=== PATIENT | male | born 1940 | race Caucasian/White ===

== ENCOUNTER 2019-11-23 16:17 | Emergency (ER) | payer MEDICARE, OTHER, SELFPAY | END 2019-11-23 19:03 | disposition home or self-care (01) | PROVIDERS: Emergency Provider Emergency Medicine; Family Provider Nurse Practitioner; Visit Provider Emergency Medicine | DX: R53.1 Weakness (principal); I10 Essential (primary) hypertension; I48.91 Unspecified atrial fibrillation; I25.2 Old myocardial infarction; G30.9 Alzheimer's disease, unspecified; F02.80 Dementia in other diseases classified elsewhere, unspecified severity, without behavioral disturbance, psychotic disturbance, mood disturbance, and anxiety; Z86.73 Personal history of transient ischemic attack (TIA), and cerebral infarction without residual deficits; F17.210 Nicotine dependence, cigarettes, uncomplicated | CPT/HCPCS: 71045; 80053; 85025; 93005; 96360; 99284; J7040 ==

== ENCOUNTER 2019-12-05 01:08 | Inpatient (IN) | payer MEDICARE, OTHER, SELFPAY ==
[2019-12-05] VITALS (21 sets, daily range): BP systolic 88–140; BP diastolic 49–107; PULSE 59–100; RESP 19–25; TEMP 36.5–39.7; O2SAT 90–100; BMI 28.7
--- NOTE | 2019-12-05 01:22 | XR_ITS ---
WS: [id number] CHEST XRAY TECHNIQUE: Portable chest. CLINICAL INFORMATION: fever COMPARISON: November 23, 2019 FINDINGS: Heart: Cardiomegaly. Aortic calcification. Lungs: Chronic emphysematous changes. No acute pulmonary infiltrates. No focal pneumonia. Bones: Normal visualized bony structures. XR/XR chest 1V portable [id number] IMPRESSION: No acute chest findings
--- NOTE | 2019-12-05 01:22 | CTR_ITS ---
PROCEDURE INFORMATION: Exam: CT Head Without Contrast Exam date and time: 12/05/2019 2:06 AM Age: 79 years old Clinical indication: Altered mental status/memory loss; Confusion or disorientation; Additional info: AMS TECHNIQUE: Imaging protocol: Computed tomography of the head without contrast. Total DLP: 879.03 mGy-cm Radiation optimization: All CT scans at this facility use at least one of these dose optimization techniques: automated exposure control; mA and/or kV adjustment per patient size (includes targeted exams where dose is matched to clinical indication); or iterative reconstruction. COMPARISON: CT Head wo IV contrast* [id number] 11/16/2019 4:21 PM FINDINGS: Brain: No acute intracranial hemorrhage or mass effect. There is decreased attenuation in the periventricular white matter, likely from microvascular disease. There are multiple old lacunar infarcts in the basal ganglia regions and thalami bilaterally. Additional old infarcts in the occipital lobes and cerebellum bilaterally, larger on the right. No definite acute infarct by CT. MRI could be more sensitive/specific for detection, as clinically directed. Ventricles: Ventricle size is normal for age. Bones/joints: No definite acute skull fracture. Nonspecific lucent/lytic area again seen in the posterior left parietal bone, not significantly changed. Sinuses: Included paranasal sinuses are essentially clear. Mastoid air cells: No significant acute finding. Vasculature: Prominent vascular calcifications in the internal carotid and vertebral basilar systems. CT/CT head wo con* [id number] IMPRESSION: 1. No acute intracranial hemorrhage or mass effect. 2. Changes of microvascular disease, and multiple old infarcts, details above. 3. No definite acute infarct by CT, see above. 4. Other findings discussed above. Radiation Dose CTDIVOL = (mGy): DLP = 879.03 (mGy-cm)
--- NOTE | 2019-12-05 01:22 | ECG_ITS ---
Measurements Intervals [place] Rate: 94 P: 76 KS: 163 QRS: 15 QRSD: 80 T: 53 QT: 356 QTc: 447 SINUS RHYTHM WITH FREQUENT VENTRICULAR PREMATURE COMPLEXES NONSPECIFIC ST & T-WAVE ABNORMALITY ABNORMAL RHYTHM ECG Compared to ECG 11/23/2019 16:31:43 Sinus bradycardia no longer present T-wave abnormality still present Electronically Signed On 12-05-2019 14:39:15 PROFESSOR OF MANAGEMENT by Leno Ji M.D. [id number]
--- NOTE | 2019-12-05 01:32 | ED_ITS ---
Entered by Anyi Rosario, acting as scribe for Evonne Ayala MD Dec 05, 2019 01:08 HPI - Altered Mental Status General: Chief Complaint: Altered Mental Status Stated Complaint: AMS Time Seen by Provider: 12/05/19 01:18 Source: patient Limitations: no limitations History of Present Illness: HPI narrative: 79 y/o male presents to the ED with complaint of weakness and AMS. Pt has been seen here several times for the same complaint. He is not alert/oriented to person, place or time. Pt appears to not make any sense with his words upon exam. complaint: altered mental status, confusion and weakness Onset (ago): day(s) Severity: moderate Associated symptoms: Reports other (fever); Deny depression Review of Systems Const: Reports: fever (101) Eyes: Denies: change in vision ENMT: Denies: throat pain or mouth pain Card: Denies: chest pain Resp: Denies: shortness of breath GI: Denies: abdominal pain, nausea, vomiting or diarrhea Musc: Denies: back pain or joint pain Skin/Breast: Denies: rash Neuro: Reports: weakness in extremities, slurred speech and difficulty communicating thoughts Psych: Denies: depression Endo: Denies: excessive urination Enrike/Lymph: Denies: easy bruising All/Imm: Denies: hives PFSH ED PFSH: Statuses (acute, chronic, etc) shown below reflect problem list status as previously entered and may not be historically accurate Social History Smoking and tobacco status: unknown if ever smoked Physical Exam Const: COMMON NORMALS: alert; negative for oriented x3 and negative for healthy appearing EXAM LIMITATIONS: altered mental status ORIENTATION/CONSCIOUSNESS: not oriented to person, not oriented to place and not oriented to time HENMT: COMMON NORMALS: normocephalic and external nose normal HEAD & SCALP: normocephalic NOSE: external nose normal Eye: COMMON NORMALS: PERRL and EOMs intact bilaterally PUPIL: Yes PERRL Neck/C-Spine: COMMON NORMALS: full ROM and no lymphadenopathy Chest: COMMONS NORMALS: inspection of chest normal Resp: COMMON NORMALS: normal respiratory effort, no use of accessory muscles and clear to auscultation bilaterally AUSCULTATION: clear to auscultation bilaterally Cardio: COMMON NORMALS: regular rate and regular rhythm RATE: regular rate RHYTHM: regular rhythm GI: COMMON NORMALS: normal to inspection, nondistended, normoactive bowel sounds, soft to palpation, non-tender and no masses PALPATION: Yes soft Back/Pelvis: THORACIC SPINE/UPPER BACK: Yes normal to inspection Extremity: COMMON NORMALS: normal to inspection, full ROM and normal capillary refill Neuro: COMMON NORMALS: negative for oriented x3 SENSORIUM/ORIENTATION: Yes alert, No oriented to person, No oriented to place, No oriented to time and Yes orientation impaired Psych: COMMON NORMALS: cooperative; negative for mental status grossly normal Skin: COMMON NORMALS: no rashes or lesions noted GENERAL SKIN EXAM: no rashes or lesions noted Course Vital Signs: Vital signs: Vital Signs Temperature 103.5 F H 12/05/19 02:59 Pulse Rate 93 12/05/19 03:40 Respiratory Rate 20 H 12/05/19 02:59 Blood Pressure 93/61 12/05/19 03:40 Pulse Oximetry 94 12/05/19 03:40 MDM - Altered Mental Status MDM Narrative: Medical decision making narrative: Patient presents here with chest pain since his ablation. Patient's initial troponin was elevated but is continually going down initial troponin elevation likely from the ablation. Patient CT scan shows no signs of dissection or emboli. Patient's pain is improved here and he is stable for discharge back to the [place] [facility]. He has no signs of pulmonary embolus or acute coronary syndrome. Lab Data: Labs: Lab Results 12/05/19 12/05/19 12/05/19 Range/Units 01:32 01:32 01:32 WBC 6.3 (4.0-10.0) 10^3/ uL RBC 4.64 (4.1-5.3) 10^6/u L Hgb 13.8 (11.7-16.6) g/dL Hct 42.6 (42.0-52.0) % MCV 91.8 (80-94) fL MCH 29.7 (28.0-34.0) pg MCHC 32.4 (30.0-36.0) g/dL RDW 13.2 (12.1-15.1) % Plt Count 166 (130-400) 10^3/c mm MPV 10.0 (7.4-10.4) fL Neut % (Auto) 94.7 % Lymph % (Auto) 4.0 % [place] % (Auto) 0.6 % Eos % (Auto) 0.2 % Baso % (Auto) 0.2 % Neut # (Auto) 6.0 (1.8-7.7) 10^3/u L Lymph # (Auto) 0.3 L (0.8-4.8) 10^3/u L [place] # (Auto) 0.0 L (0.2-0.9) 10^3/u L Eos # (Auto) 0.0 (0.0-0.8) 10^3/u L Baso # (Auto) 0.0 (0.0-0.1) 10^3/u L Nucleated RBC % (a uto) 0 % Nucleated RBCs # 0.0 /100WBC PT 14.40 H (10.5-13.3) SECO NDS INR 1.08 (0.8-1.2) Specimen Type Sample Site ABG pH (7.35-7.45) ABG pCO2 (35-45) mmHg ABG pO2 (80.0-100.0) mmH g ABG HCO3 (22-26) mmol/L ABG Base Excess (-2.0-2.0) mmol/ L Michel Test Hematocrit (42-52) % Last Repairer ID Sodium 136 (136-145) mmol/L Potassium 3.6 (3.5-5.1) mmol/L Chloride 105 (98-107) mmol/L Carbon Dioxide 18 L (22-29) mmol/L Anion Gap 16.6 (5-19) BUN 15 (8-23) mg/dL Creatinine 1.2 (0.7-1.2) mg/dL Glucose 138 H (74-106) mg/dL Lactic Acid (0.5-2.2) mmol/L Calcium 9.9 (8.8-10.2) mg/Dl Total Bilirubin 0.7 (0.15-1.2) mg/dL AST 15 (0-40) U/L ALT 11 (0-41) U/L Alkaline Phosphata se 88 (40-130) IU/L Total Protein 6.6 (6.6-8.7) g/dL Albumin 3.6 (3.5-5.2) g/dL Globulin 3.0 (1.3-4.6) g/dL Urine Color (Yellow) Urine Appearance (CLEAR) Urine pH (5-7) Ur Specific Gravit y (1.005-1.030) Urine Protein (Negative) Urine Glucose (UA) (Normal) Urine Ketones (Negative) Urine Occult Blood (Negative) Urine Nitrate (Negative) Urine Bilirubin (NEGATIVE) Urine Urobilinogen (Negative) mg/dL Ur Leukocyte [place]ore[place] ase (Negative) Urine RBC (0-2) /hpf Urine WBC (0-5) /hpf Ur Squamous Epith Cells (0-5) Ur Transition Epit h Cell /hpf Urine Bacteria (NONE) Hyaline Casts 12/05/19 12/05/19 12/05/19 Range/Units 01:32 02:28 03:36 WBC (4.0-10.0) 10^3/ uL RBC (4.1-5.3) 10^6/u L Hgb (11.7-16.6) g/dL Hct (42.0-52.0) % MCV (80-94) fL MCH (28.0-34.0) pg MCHC (30.0-36.0) g/dL RDW (12.1-15.1) % Plt Count (130-400) 10^3/c mm MPV (7.4-10.4) fL Neut % (Auto) % Lymph % (Auto) % [place] % (Auto) % Eos % (Auto) % Baso % (Auto) % Neut # (Auto) (1.8-7.7) 10^3/u L Lymph # (Auto) (0.8-4.8) 10^3/u L [place] # (Auto) (0.2-0.9) 10^3/u L Eos # (Auto) (0.0-0.8) 10^3/u L Baso # (Auto) (0.0-0.1) 10^3/u L Nucleated RBC % (a uto) % Nucleated RBCs # /100WBC PT (10.5-13.3) SECO NDS INR (0.8-1.2) Specimen Type Arterial Sample Site Radial, right ABG pH 7.49 H (7.35-7.45) ABG pCO2 29.3 L (35-45) mmHg ABG pO2 70.1 L (80.0-100.0) mmH g ABG HCO3 22.4 (22-26) mmol/L ABG Base Excess 0.2 (-2.0-2.0) mmol/ L Michel Test Pos Hematocrit 44.1 (42-52) % Last Repairer ID harkr Sodium (136-145) mmol/L Potassium (3.5-5.1) mmol/L Chloride (98-107) mmol/L Carbon Dioxide (22-29) mmol/L Anion Gap (5-19) BUN (8-23) mg/dL Creatinine (0.7-1.2) mg/dL Glucose (74-106) mg/dL Lactic Acid 2.7 H (0.5-2.2) mmol/L Calcium (8.8-10.2) mg/Dl Total Bilirubin (0.15-1.2) mg/dL AST (0-40) U/L ALT (0-41) U/L Alkaline Phosphata se (40-130) IU/L Total Protein (6.6-8.7) g/dL Albumin (3.5-5.2) g/dL Globulin (1.3-4.6) g/dL Urine Color Yellow (Yellow) Urine Appearance Clear (CLEAR) Urine pH 5 (5-7) Ur Specific Gravit y 1.015 (1.005-1.030) Urine Protein Neg (Negative) Urine Glucose (UA) Norm (Normal) Urine Ketones Negative (Negative) Urine Occult Blood 2+ H (Negative) Urine Nitrate Negative (Negative) Urine Bilirubin Neg (NEGATIVE) Urine Urobilinogen Norm (Negative) mg/dL Ur Leukocyte [place] ase Negative (Negative) Urine RBC 10-15 H (0-2) /hpf Urine WBC 0-4 H (0-5) /hpf Ur Squamous Epith Cells 0-4 H (0-5) Ur Transition Epit h Cell 0-4 /hpf Urine Bacteria 1+ H (NONE) Hyaline Casts 0-4 H Imaging Data^: CXR: Attestation: I personally reviewed and interpreted this imaging study as follows: My impression: nad CT Head: Radiologist's impression: ate of Service: 12/05/19 Procedure(s): CT head wo con* [id number] Accession Number(s): [id number] cc: Evonne Ayala MD PROCEDURE INFORMATION: Exam: CT Head Without Contrast Exam date and time: 12/05/2019 2:06 AM Age: 79 years old Clinical indication: Altered mental status/memory loss; Confusion or disorientation; Additional info: AMS TECHNIQUE: Imaging protocol: Computed tomography of the head without contrast. Total DLP: 879.03 mGy-cm Radiation optimization: All CT scans at this facility use at least one of these dose optimization techniques: automated exposure control; mA and/or kV adjustment per patient size (includes targeted exams where dose is matched to clinical indication); or iterative reconstruction. COMPARISON: CT Head wo IV contrast* [id number] 11/16/2019 4:21 PM FINDINGS: Brain: No acute intracranial hemorrhage or mass effect. There is decreased attenuation in the periventricular white matter, likely from microvascular disease. There are multiple old lacunar infarcts in the basal ganglia regions and thalami bilaterally. Additional old infarcts in the occipital lobes and cerebellum bilaterally, larger on the right. No definite acute infarct by CT. MRI could be more sensitive/specific for detection, as clinically directed. Ventricles: Ventricle size is normal for age. Bones/joints: No definite acute skull fracture. Nonspecific lucent/lytic area again seen in the posterior left parietal bone, not significantly changed. Sinuses: Included paranasal sinuses are essentially clear. Mastoid air cells: No significant acute finding. Vasculature: Prominent vascular calcifications in the internal carotid and vertebral basilar systems. CT/CT head wo con* [id number] IMPRESSION: 1. No acute intracranial hemorrhage or mass effect. 2. Changes of microvascular disease, and multiple old infarcts, details above. 3. No definite acute infarct by CT, see above. 4. Other findings discussed above. EKG Data^: EKG 1: Attestation: I personally reviewed and interpreted this EKG as follows: EKG interpretation date: 12/05/19 EKG interpretation time: 02:33 Interpretation: nsr hr [address] or t wave abnormalities qrs 80 qtc 408 Coding Level of Care Code ED Petrologist for Chg Fwd Exam Problem Focused The documentation recorded by the Abraham tapia Ashley, accurately reflects the service I personally performed and the decisions made by , Evonne Ayala MD Dec 05, 2019 01:08
[2019-12-05 01:42] LABS: Basophils % 0.2 %; Eosinophils % 0.2 %; Hematocrit 42.6 % (42.0-52.0); Hemoglobin 13.8 g/dL (11.7-16.6); Lymphocytes # 0.3 10^3/uL (0.8-4.8); Mean Corpuscular HGB Conc 32.4 g/dL (30.0-36.0); Mean Corpuscular Hemoglobin 29.7 pg (28.0-34.0); Mean Corpuscular Volume 91.8 fL (80-94); Monocytes % 0.6 %; Neutrophils % 94.7 %; Nucleated Red Blood Cells % 0 %; Platelet Count 166 10^3/cmm (130-400); Red Blood Count 4.64 10^6/uL (4.1-5.3); Red Cell Distribution Width 13.2 % (12.1-15.1); White Blood Count 6.3 10^3/uL (4.0-10.0)
[2019-12-05 01:57] LABS: INR 1.08 (0.8-1.2)
[2019-12-05 02:03] LABS: Alanine Aminotransferase 11 U/L (0-41); Albumin Level 3.6 g/dL (3.5-5.2); Alkaline Phosphatase 88 IU/L (40-130); Anion Gap 16.6 (5-19); Aspartate Amino Transferase 15 U/L (0-40); Blood Urea Nitrogen 15 mg/dL (8-23); Calcium 9.9 mg/Dl (8.8-10.2); Carbon Dioxide 18 mmol/L (22-29); Chloride 105 mmol/L (98-107); Glucose 138 mg/dL (74-106); Potassium 3.6 mmol/L (3.5-5.1); Sodium 136 mmol/L (136-145); Total Bilirubin 0.7 mg/dL (0.15-1.2); Total Protein 6.6 g/dL (6.6-8.7)
[2019-12-05 02:04] LABS: Lactic Sepsis W/Reflex 2.7 mmol/L (0.5-2.2)
[2019-12-05] MEDS: sodium chloride 0.9% 1,000 ML 999 ML IV ×3 (02:21→05:52)
[2019-12-05] MEDS: piperacillin-tazobactam 4.5 GM in sodium chloride 0.9% (plus) 50 ML IV (02:27)
[2019-12-05 02:39] LABS: ABG PCO2 29.3 mmHg (35-45); ABG PH Result 7.49 (7.35-7.45); Arterial Blood Gas Hematocrit 44.1 % (42-52); Base Excess ABG 0.2 mmol/L (-2.0-2.0); Blood Gas Allen Test Pos; Blood Gas Sample Site Radial, right; Blood Gas Sample Type Arterial; HCO3 ABG 22.4 mmol/L (22-26); PO2 ABG 70.1 mmHg (80.0-100.0)
--- NOTE | 2019-12-05 03:06 | PC.NURSE ---
informed charge nurse and doctor of fever 103.5 via left under arm
[2019-12-05 03:26] LABS: Reflex Lactate Order Y
[2019-12-05 04:01] LABS: Bilirubin Urine Neg (NEGATIVE); Blood Urine 2+ (Negative); Glucose Urine UA Norm (Normal); Ketones Urine Negative (Negative); Leukocyte Esterase Urine Negative (Negative); Nitrate Urine Negative (Negative); Protein Urine Neg (Negative); Specific Gravity, Urine 1.015 (1.005-1.030); Urine Appearance Clear (CLEAR); Urine Color Yellow (Yellow); Urobilinogen Urine Norm (Negative); pH Urine 5 (5-7)
[2019-12-05 04:03] LABS: WBC Urine 0-4 /hpf (0-5)
[2019-12-05 04:04] LABS: Add Urine Culture? Yes; Bacteria Urine 1+; Hyaline Casts Urine 0-4; Squamous Epithelial Cell Urine 0-4 (0-5); Transitional Epi Cells Urine 0-4 /hpf
[2019-12-05 04:22] LABS: Influenza A by IFA Negative (Negative); Influenza B by IFA Negative (Negative)
[2019-12-05] MEDS: ketamine 100 mg/mL Inj 5 mL IV (04:52)
[2019-12-05 05:27] LABS: CSF Mononuclear # 0.001 10^3/uL (50-90); Mononuclear WBC CSF % 100 % (50-90); Polynuclear WBC CSF % 0 % (0-10); Red Blood Cell CSF 0 10^3/uL (0-0); White Blood Cell CSF 1 /uL (0-5)
[2019-12-05 05:47] LABS: Appearance CSF CLEAR (CLEAR); Color CSF COLORLESS (COLORLESS); Pathology Referral Yes
--- NOTE | 2019-12-05 07:03 | PC.NURSE ---
report received from JOHN Villa.
[2019-12-05 07:52] LABS: Lactate (Lactic Acid level) 2.2 mmol/L (0.5-2.2)
--- NOTE | 2019-12-05 08:43 | ED_ITS ---
HPI - Altered Mental Status General: Chief Complaint: Altered Mental Status Stated Complaint: AMS Time Seen by Provider: 12/05/19 01:18 Source: patient Limitations: no limitations History of Present Illness: Severity: moderate PFSH ED PFSH: Statuses (acute, chronic, etc) shown below reflect problem list status as previously entered and may not be historically accurate Medical History Atrial fibrillation (Acute) BPH (benign prostatic hyperplasia) (Acute) Chronic anticoagulation (Acute) Coronary artery disease (Acute) Dementia (Acute) Diastolic CHF (Acute) GERD (gastroesophageal reflux disease) (Acute) History of CVA (cerebrovascular accident) (Acute) Hyperlipidemia (Acute) Hypertension (Acute) Lower GI bleed (Acute) Surgical History H/O vasectomy (Acute) Hx of cardiac cath (Acute) 2000, coronary stent placement x3 S/P skin cancer resection (Acute) Lip, shoulder, back Family History Daughter CAD (coronary artery disease) Diabetes Son CAD (coronary artery disease) Social History Smoking and tobacco status: unknown if ever smoked Alcohol intake: unknown Substance/Drug Use: unknown Household members: spouse Course ED course: Chart signed off to me at change of shift. Patient was awaiting room placement in our facility. She had no further events while in the emergency room was admitted via hospitalist services. Vital Signs: Vital signs: Vital Signs Temperature 98.7 F 12/09/19 17:04 Pulse Rate 66 12/09/19 15:29 Respiratory Rate 17 12/09/19 17:04 Blood Pressure 121/75 12/09/19 15:29 Pulse Oximetry 91 12/09/19 17:04 MDM - Altered Mental Status Lab Data: Labs: Lab Results 12/05/19 12/05/19 12/05/19 Range/Units 01:32 01:32 01:32 WBC 6.3 (4.0-10.0) 10^3/ uL RBC 4.64 (4.1-5.3) 10^6/u L Hgb 13.8 (11.7-16.6) g/dL Hct 42.6 (42.0-52.0) % MCV 91.8 (80-94) fL MCH 29.7 (28.0-34.0) pg MCHC 32.4 (30.0-36.0) g/dL RDW 13.2 (12.1-15.1) % Plt Count 166 (130-400) 10^3/c mm MPV 10.0 (7.4-10.4) fL Neut % (Auto) 94.7 % Lymph % (Auto) 4.0 % [place] % (Auto) 0.6 % Eos % (Auto) 0.2 % Baso % (Auto) 0.2 % Neut # (Auto) 6.0 (1.8-7.7) 10^3/u L Lymph # (Auto) 0.3 L (0.8-4.8) 10^3/u L [place] # (Auto) 0.0 L (0.2-0.9) 10^3/u L Eos # (Auto) 0.0 (0.0-0.8) 10^3/u L Baso # (Auto) 0.0 (0.0-0.1) 10^3/u L Nucleated RBC % (a uto) 0 % Nucleated RBCs # 0.0 /100WBC PT 14.40 H (10.5-13.3) SECO NDS INR 1.08 (0.8-1.2) Specimen Type Sample Site ABG pH (7.35-7.45) ABG pCO2 (35-45) mmHg ABG pO2 (80.0-100.0) mmH g ABG HCO3 (22-26) mmol/L ABG Base Excess (-2.0-2.0) mmol/ L Michel Test Hematocrit (42-52) % Specimen Drawn By Shopper Marketing Manager ID Sodium 136 (136-145) mmol/L Potassium 3.6 (3.5-5.1) mmol/L Chloride 105 (98-107) mmol/L Carbon Dioxide 18 L (22-29) mmol/L Anion Gap 16.6 (5-19) BUN 15 (8-23) mg/dL Creatinine 1.2 (0.7-1.2) mg/dL Glucose 138 H (74-106) mg/dL Lactic Acid (0.5-2.2) mmol/L Calcium 9.9 (8.8-10.2) mg/Dl Total Bilirubin 0.7 (0.15-1.2) mg/dL AST 15 (0-40) U/L ALT 11 (0-41) U/L Alkaline Phosphata se 88 (40-130) IU/L Total Protein 6.6 (6.6-8.7) g/dL Albumin 3.6 (3.5-5.2) g/dL Globulin 3.0 (1.3-4.6) g/dL TSH (0.27-4.20) uIU/ mL Urine Color (Yellow) Urine Appearance (CLEAR) Urine pH (5-7) Ur Specific Gravit y (1.005-1.030) Urine Protein (Negative) Urine Glucose (UA) (Normal) Urine Ketones (Negative) Urine Occult Blood (Negative) Urine Nitrate (Negative) Urine Bilirubin (NEGATIVE) Urine Urobilinogen (Negative) mg/dL Ur Leukocyte [place] ase (Negative) Urine RBC (0-2) /hpf Urine WBC (0-5) /hpf Ur Squamous Epith Cells (0-5) Ur Transition Epit h Cell /hpf Urine Bacteria (NONE) Hyaline Casts CSF Appearance (CLEAR) CSF Color (COLORLESS) CSF WBC (0-5) /uL CSF RBC (0-0) 10^3/uL CSF Mononuclear # Auto (50-90) 10^3/uL CSF Mononuclear WB Cs % (50-90) % CSF Polynuclear WB Cs # (0-10) 10^3/uL CSF Polynuclear WB Cs % (0-10) % CSF Diff Comment CSF VDRL Influenza Type A A g (Negative) POC Influenza B Ag (Negative) 12/05/19 12/05/19 12/05/19 Range/Units 01:32 01:32 02:28 WBC (4.0-10.0) 10^3/ uL RBC (4.1-5.3) 10^6/u L Hgb (11.7-16.6) g/dL Hct (42.0-52.0) % MCV (80-94) fL MCH (28.0-34.0) pg MCHC (30.0-36.0) g/dL RDW (12.1-15.1) % Plt Count (130-400) 10^3/c mm MPV (7.4-10.4) fL Neut % (Auto) % Lymph % (Auto) % [place] % (Auto) % Eos % (Auto) % Baso % (Auto) % Neut # (Auto) (1.8-7.7) 10^3/u L Lymph # (Auto) (0.8-4.8) 10^3/u L [place] # (Auto) (0.2-0.9) 10^3/u L Eos # (Auto) (0.0-0.8) 10^3/u L Baso # (Auto) (0.0-0.1) 10^3/u L Nucleated RBC % (a uto) % Nucleated RBCs # /100WBC PT (10.5-13.3) SECO NDS INR (0.8-1.2) Specimen Type Arterial Sample Site Radial, right ABG pH 7.49 H (7.35-7.45) ABG pCO2 29.3 L (35-45) mmHg ABG pO2 70.1 L (80.0-100.0) mmH g ABG HCO3 22.4 (22-26) mmol/L ABG Base Excess 0.2 (-2.0-2.0) mmol/ L Michel Test Pos Hematocrit 44.1 (42-52) % Specimen Drawn By Kh Shopper Marketing Manager ID [email or web address] Sodium (136-145) mmol/L Potassium (3.5-5.1) mmol/L Chloride (98-107) mmol/L Carbon Dioxide (22-29) mmol/L Anion Gap (5-19) BUN (8-23) mg/dL Creatinine (0.7-1.2) mg/dL Glucose (74-106) mg/dL Lactic Acid 2.7 H (0.5-2.2) mmol/L Calcium (8.8-10.2) mg/Dl Total Bilirubin (0.15-1.2) mg/dL AST (0-40) U/L ALT (0-41) U/L Alkaline Phosphata se (40-130) IU/L Total Protein (6.6-8.7) g/dL Albumin (3.5-5.2) g/dL Globulin (1.3-4.6) g/dL TSH 2.20 (0.27-4.20) uIU/ mL Urine Color (Yellow) Urine Appearance (CLEAR) Urine pH (5-7) Ur Specific Gravit y (1.005-1.030) Urine Protein (Negative) Urine Glucose (UA) (Normal) Urine Ketones (Negative) Urine Occult Blood (Negative) Urine Nitrate (Negative) Urine Bilirubin (NEGATIVE) Urine Urobilinogen (Negative) mg/dL Ur Leukocyte [place] ase (Negative) Urine RBC (0-2) /hpf Urine WBC (0-5) /hpf Ur Squamous Epith Cells (0-5) Ur Transition Epit h Cell /hpf Urine Bacteria (NONE) Hyaline Casts CSF Appearance (CLEAR) CSF Color (COLORLESS) CSF WBC (0-5) /uL CSF RBC (0-0) 10^3/uL CSF Mononuclear # Auto (50-90) 10^3/uL CSF Mononuclear WB Cs % (50-90) % CSF Polynuclear WB Cs # (0-10) 10^3/uL CSF Polynuclear WB Cs % (0-10) % CSF Diff Comment CSF VDRL Influenza Type A A g (Negative) POC Influenza B Ag (Negative) 12/05/19 12/05/19 12/05/19 Range/Units 03:20 03:36 04:41 WBC (4.0-10.0) 10^3/ uL RBC (4.1-5.3) 10^6/u L Hgb (11.7-16.6) g/dL Hct (42.0-52.0) % MCV (80-94) fL MCH (28.0-34.0) pg MCHC (30.0-36.0) g/dL RDW (12.1-15.1) % Plt Count (130-400) 10^3/c mm MPV (7.4-10.4) fL Neut % (Auto) % Lymph % (Auto) % [place] % (Auto) % Eos % (Auto) % Baso % (Auto) % Neut # (Auto) (1.8-7.7) 10^3/u L Lymph # (Auto) (0.8-4.8) 10^3/u L [place] # (Auto) (0.2-0.9) 10^3/u L Eos # (Auto) (0.0-0.8) 10^3/u L Baso # (Auto) (0.0-0.1) 10^3/u L Nucleated RBC % (a uto) % Nucleated RBCs # /100WBC PT (10.5-13.3) SECO NDS INR (0.8-1.2) Specimen Type Sample Site ABG pH (7.35-7.45) ABG pCO2 (35-45) mmHg ABG pO2 (80.0-100.0) mmH g ABG HCO3 (22-26) mmol/L ABG Base Excess (-2.0-2.0) mmol/ L Michel Test Hematocrit (42-52) % Specimen Drawn By Shopper Marketing Manager ID Sodium (136-145) mmol/L Potassium (3.5-5.1) mmol/L Chloride (98-107) mmol/L Carbon Dioxide (22-29) mmol/L Anion Gap (5-19) BUN (8-23) mg/dL Creatinine (0.7-1.2) mg/dL Glucose (74-106) mg/dL Lactic Acid (0.5-2.2) mmol/L Calcium (8.8-10.2) mg/Dl Total Bilirubin (0.15-1.2) mg/dL AST (0-40) U/L ALT (0-41) U/L Alkaline Phosphata se (40-130) IU/L Total Protein (6.6-8.7) g/dL Albumin (3.5-5.2) g/dL Globulin (1.3-4.6) g/dL TSH (0.27-4.20) uIU/ mL Urine Color Yellow (Yellow) Urine Appearance Clear (CLEAR) Urine pH 5 (5-7) Ur Specific Gravit y 1.015 (1.005-1.030) Urine Protein Neg (Negative) Urine Glucose (UA) Norm (Normal) Urine Ketones Negative (Negative) Urine Occult Blood 2+ H (Negative) Urine Nitrate Negative (Negative) Urine Bilirubin Neg (NEGATIVE) Urine Urobilinogen Norm (Negative) mg/dL Ur Leukocyte [place]ore[place] ase Negative (Negative) Urine RBC 10-15 H (0-2) /hpf Urine WBC 0-4 H (0-5) /hpf Ur Squamous Epith Cells 0-4 H (0-5) Ur Transition Epit h Cell 0-4 /hpf Urine Bacteria 1+ H (NONE) Hyaline Casts 0-4 H CSF Appearance Clear (CLEAR) CSF Color Colorless (COLORLESS) CSF WBC 1 (0-5) /uL CSF RBC 0 (0-0) 10^3/uL CSF Mononuclear # Auto 0.001 L (50-90) 10^3/uL CSF Mononuclear WB Cs % 100 H (50-90) % CSF Polynuclear WB Cs # 0.000 (0-10) 10^3/uL CSF Polynuclear WB Cs % 0 (0-10) % CSF Diff Comment Yes CSF VDRL Influenza Type A A g Negative (Negative) POC Influenza B Ag Negative (Negative) 12/05/19 Range/Units 04:41 WBC (4.0-10.0) 10^3/ uL RBC (4.1-5.3) 10^6/u L Hgb (11.7-16.6) g/dL Hct (42.0-52.0) % MCV (80-94) fL MCH (28.0-34.0) pg MCHC (30.0-36.0) g/dL RDW (12.1-15.1) % Plt Count (130-400) 10^3/c mm MPV (7.4-10.4) fL Neut % (Auto) % Lymph % (Auto) % [place] % (Auto) % Eos % (Auto) % Baso % (Auto) % Neut # (Auto) (1.8-7.7) 10^3/u L Lymph # (Auto) (0.8-4.8) 10^3/u L [place] # (Auto) (0.2-0.9) 10^3/u L Eos # (Auto) (0.0-0.8) 10^3/u L Baso # (Auto) (0.0-0.1) 10^3/u L Nucleated RBC % (a uto) % Nucleated RBCs # /100WBC PT (10.5-13.3) SECO NDS INR (0.8-1.2) Specimen Type Sample Site ABG pH (7.35-7.45) ABG pCO2 (35-45) mmHg ABG pO2 (80.0-100.0) mmH g ABG HCO3 (22-26) mmol/L ABG Base Excess (-2.0-2.0) mmol/ L Michel Test Hematocrit (42-52) % Specimen Drawn By Shopper Marketing Manager ID Sodium (136-145) mmol/L Potassium (3.5-5.1) mmol/L Chloride (98-107) mmol/L Carbon Dioxide (22-29) mmol/L Anion Gap (5-19) BUN (8-23) mg/dL Creatinine (0.7-1.2) mg/dL Glucose (74-106) mg/dL Lactic Acid (0.5-2.2) mmol/L Calcium (8.8-10.2) mg/Dl Total Bilirubin (0.15-1.2) mg/dL AST (0-40) U/L ALT (0-41) U/L Alkaline Phosphata se (40-130) IU/L Total Protein (6.6-8.7) g/dL Albumin (3.5-5.2) g/dL Globulin (1.3-4.6) g/dL TSH (0.27-4.20) uIU/ mL Urine Color (Yellow) Urine Appearance (CLEAR) Urine pH (5-7) Ur Specific Gravit y (1.005-1.030) Urine Protein (Negative) Urine Glucose (UA) (Normal) Urine Ketones (Negative) Urine Occult Blood (Negative) Urine Nitrate (Negative) Urine Bilirubin (NEGATIVE) Urine Urobilinogen (Negative) mg/dL Ur Leukocyte [place]ore[place] ase (Negative) Urine RBC (0-2) /hpf Urine WBC (0-5) /hpf Ur Squamous Epith Cells (0-5) Ur Transition Epit h Cell /hpf Urine Bacteria (NONE) Hyaline Casts CSF Appearance (CLEAR) CSF Color (COLORLESS) CSF WBC (0-5) /uL CSF RBC (0-0) 10^3/uL CSF Mononuclear # Auto (50-90) 10^3/uL CSF Mononuclear WB Cs % (50-90) % CSF Polynuclear WB Cs # (0-10) 10^3/uL CSF Polynuclear WB Cs % (0-10) % CSF Diff Comment CSF VDRL Non-reactive Influenza Type A A g (Negative) POC Influenza B Ag (Negative) Discharge Plan Discharge Patient Disposition: Admitted As Inpatient Admit Provider: Telma Corley Condition: Stable Discharge Orders: Discharge Order (Routine); Ordered 12/09/19 Ordered By: Toña Allan Referrals: Noah Preciado MD [Physician] - 6 Weeks Patricia Ramos FNP [Primary Care Provider] - Discharge Diet: Cardiac, GI soft diet, advance as tolerated. Patient does require assistance with each meal for feeding Discharge Activity: As per PT/OT instructions Patient Instructions: Sulfamethoxazole/Trimethoprim (By mouth), Lorazepam (By mouth), Pantoprazole (By mouth), Fever - Adult, Altered Mental Status (GEN) Additional Instructions: [facility] 2 [facility] 3 [facility] Continue with oral antibiotics as prescribed Continue to monitor renal function with prescribed antibiotic Follow-up with general surgeon, Dr. Preciado in 6 weeks to discuss possibility of colonoscopy and cholecystectomy Oxygen as needed at the [facility], currently on room air Continue with physical therapy, occupational therapy and speech therapy Continue to increase ambulation as tolerated GI soft diet, slowly advance as tolerated, high-fiber diet Discharge Date/Time: 12/05/19 15:50 Coding Level of Care Code ED Senior Web Developer for Tito Mijares
--- NOTE | 2019-12-05 08:50 | PC.NURSE ---
pt's BP 71/63. verbal orders from ER physician to start levophed drip and place vick catheter. Hospitalist at bedside to assess pt
--- NOTE | 2019-12-05 08:56 | PM.HP ---
Providers/Chief Complaint Admitting Physician: Toña Allan DO Primary Care Provider: Patricia Ramos Chief Complaint: AMS History of Present Illness Anjum Mendoza is a 79 year old male that presented to the emergency department for altered mental status. Difficult to obtain HPI from patient due to altered mental status. He reports that he is not certain why he came into the hospital, no family is present at bedside during my exam. He reports that he has not had any chest pain, no cough, no sputum production, no hemoptysis. He denies any nausea or vomiting but reports that he is feeling very thirsty. Patient does not recall any events that led to his hospitalization. He is able to report that he is in [place] able to provide his full name and date of and able to provide correct president but reports that the year is 1999. Patient was seen and evaluated in the emergency department noted to have sepsis with septic shock and admitted for further evaluation and treatment. Patient had a lumbar puncture performed in the ED, given 3 L of IV fluids and ultimately started on Levophed drip. Given broad-spectrum IV antibiotics in the ED Review of Systems General: Reports: other (Difficult to obtain full review of systems due to patient's altered mental status) Const: Reports: fever (101) Eyes: Reports: change in vision and other (Chronic vision changes from prior stroke) ENMT: Denies: throat pain or mouth pain Card: Denies: chest pain Resp: Denies: shortness of breath, productive cough, non-productive cough or coughing up blood GI: Reports: abdominal pain; Denies: nausea, vomiting, diarrhea, blood in stool or black tarry stool : Denies: difficulty urinating or painful urination Musc: Denies: back pain or joint pain Skin/Breast: Denies: rash Neuro: Reports: confusion and other (Chronic weakness in the lower extremities and chronic vision changes from prior stroke) Psych: Denies: depression Endo: Denies: excessive urination [place]/Lymph: Denies: easy bruising All/Imm: Denies: hives Medications/Allergies Home Medications Medication Instructions Recorded Confirmed Last Taken Type atorvastatin 40 mg PO DAILY 12/05/19 12/05/19 12/04/19 History finasteride 5 mg PO DAILY 12/05/19 12/05/19 12/04/19 History memantine 10 mg PO DAILY 12/05/19 12/05/19 12/04/19 History mirtazapine 30 mg PO DAILY 12/05/19 12/05/19 12/04/19 History quetiapine 25 mg PO DAILY 12/05/19 12/05/19 12/04/19 History sotalol 80 mg PO BID 12/05/19 12/05/19 12/04/19 History tamsulosin 0.4 mg PO DAILY 12/05/19 12/05/19 12/04/19 History Allergies Allergy/AdvReac Type Severity Reaction Status Date / Time No Known Allergies Allergy Verified 12/05/19 09:43 PFSH Acute PFSH: Statuses (acute, chronic, etc) shown below reflect problem list status as previously entered and may not be historically accurate Medical History (Updated 12/05/19 @ 09:06 by Toña Allan DO) Atrial fibrillation (Acute) BPH (benign prostatic hyperplasia) (Acute) Chronic anticoagulation (Acute) Coronary artery disease (Acute) Dementia (Acute) Diastolic CHF (Acute) GERD (gastroesophageal reflux disease) (Acute) History of CVA (cerebrovascular accident) (Acute) Hyperlipidemia (Acute) Hypertension (Acute) Lower GI bleed (Acute) Surgical History (Updated 12/05/19 @ 09:06 by Toña Allan DO) H/O vasectomy (Acute) Hx of cardiac cath (Acute) 2000, coronary stent placement x3 S/P skin cancer resection (Acute) Lip, shoulder, back Family History (Updated 12/05/19 @ 09:06 by Toña Allan DO) Daughter CAD (coronary artery disease) Diabetes Son CAD (coronary artery disease) Social History (Updated 12/05/19 @ 09:07 by Toña Allan DO) Smoking and tobacco status: unknown if ever smoked Alcohol intake: unknown Substance/Drug Use: unknown Household members: spouse Vitals/I&O/Wt Last Vital Signs Temp 103.5 F H 12/05/19 02:59 Pulse 83 12/05/19 07:41 Resp 19 H 12/05/19 04:48 BP 98/49 12/05/19 07:41 Pulse Ox 94 12/05/19 07:41 12/04/19 12/05/19 12/05/19 22:59 06:59 14:59 Intake Total 3300 / 3300 Balance 3300 / 3300 Weight last 48 hrs Weight 90.718 kg Physical Exam Const: COMMON NORMALS: oriented x3 and alert GENERAL APPEARANCE: cooperative ORIENTATION/CONSCIOUSNESS: Yes awake, Yes oriented to person and Yes oriented to place; not oriented to time HENMT: COMMON NORMALS: normocephalic and head/scalp atraumatic HEAD & SCALP: normocephalic and atraumatic Eye: COMMON NORMALS: PERRL PUPIL: Yes PERRL Neck/C-Spine: COMMON NORMALS: supple Resp: COMMON NORMALS: clear to auscultation bilaterally AUSCULTATION: clear to auscultation bilaterally, no rhonchi and no wheezes Cardio: COMMON NORMALS: regular rate and regular rhythm RATE: regular rate RHYTHM: regular rhythm HEART SOUNDS: murmur systolic GI: INSPECTION: No abdominal distension and Yes central obesity AUSCULTATION: Yes hypoactive bowel sounds PALPATION: Yes tender Details: RLQ and RUQ : COMMON NORMALS: Yes scrotum normal and Yes no scrotal swelling OTHER: Nuñez catheter in place Extremity: COMMON NORMALS: no clubbing, cyanosis or edema and no calf tenderness Neuro: COMMON NORMALS: oriented x3, CN's II-XII intact bilaterally, moves all extremities and no focal motor deficits SENSORIUM/ORIENTATION: Yes alert, Yes oriented to person, Yes oriented to place and Yes oriented to time SPEECH: speech normal OTHER: Reports chronic vision changes from prior CVA, oriented to person and place, not oriented to time. No appreciable facial droop, answering yes and no questions appropriately Psych: COMMON NORMALS: cooperative Skin: COMMON NORMALS: no rashes or lesions noted GENERAL SKIN EXAM: no rashes or lesions noted Sepsis: Is patient septic: Yes Focused sepsis exam performed: Yes Date exam was performed: 12/05/19 Time exam was performed: 09:10 Data Micro: Micro: Microbiology 12/05/19 01:48 Blood Culture - Pr eliminary Blood SPECIMEN [facility] 12/05/19 01:32 Blood Culture - Pr eliminary Blood SPECIMEN [facility] Imaging^: CT Head: Radiologist's impression: 1. No acute intracranial hemorrhage or mass effect. 2. Changes of microvascular disease, and multiple old infarcts, details above. 3. No definite acute infarct by CT, see above. 4. Other findings discussed above CXR: Radiologist's impression: No acute chest findings A&P Assessment and plan (1) Sepsis: Sepsis with unknown source Continue broad spectrum antibiotics, given Zosyn and vancomycin in the ED, will continue at this time Further evaluate with CT scan of the abdomen and pelvis due to patient having significant tenderness to palpation in the right upper and lower quadrant Continue with aggressive IV fluids Patient started on levophed in the ED, will continue with IV fluids 30 mg/kg per sepsis protocol Status: Acute Code(s): A41.9 - Sepsis, unspecified organism (2) History of CVA (cerebrovascular accident): With residual lower extremity weakness and chronic vision changes and near vision loss No new focal neurologic deficits at this time Continue with close neurologic checks Status: Acute Code(s): Z86.73 - Personal history of transient ischemic attack (TIA), and cerebral infarction without residual deficits (3) Coronary artery disease: Status: Acute Code(s): I25.10 - Atherosclerotic heart disease of [place] coronary artery without angina pectoris (4) Atrial fibrillation: Status: Acute Code(s): I48.91 - Unspecified atrial fibrillation (5) GERD (gastroesophageal reflux disease): Status: Acute Code(s): K21.9 - Gastro-esophageal reflux disease without esophagitis (6) Diastolic CHF: Status: Acute Code(s): I50.30 - Unspecified diastolic (congestive) heart failure (7) BPH (benign prostatic hyperplasia): Status: Acute Code(s): N40.0 - Benign prostatic hyperplasia without lower urinary tract symptoms (8) Hypertension: Status: Acute Code(s): I10 - Essential (primary) hypertension (9) Dementia: Status: Acute Code(s): F03.90 - Unspecified dementia without behavioral disturbance Additional A&P Information Additional A&P Information: Acute metabolic encephalopathy: Plan as noted above for treatment of sepsis, continue with frequent neurologic checks, CT scan of the head as noted above. Close monitoring in the ICU setting. Check TSH and ammonia Unknown medications at time of initial examination no family present at bedside. Will obtain home medication list and further evaluate with CT scan of the abdomen and pelvis. CT scan of the abdomen and pelvis returned showing diverticulitis without any perforation or abscess formation. Also showing cholelithiasis, right upper quadrant ultrasound ordered for further evaluation. Continue on broad-spectrum antibiotic coverage. Patient had right upper quadrant ultrasound returned which showed question of early cholecystitis, will further evaluate with HIDA scan and consult general surgery. Attestations Medical Necessity Statement*: Patient requires hospitalization due to sepsis, with acute metabolic encephalopathy expected stay greater than 2 midnights Coding Level of Care Code Acute Sort Operations Supervisor for Chg Fwd Exam Problem Focused Diagnoses Sepsis A41.9 History of CVA (cerebrovascular accident) Z86.73 Coronary artery disease I25.10 Atrial fibrillation I48.91 GERD (gastroesophageal reflux disease) K21.9 Diastolic CHF I50.30 BPH (benign prostatic hyperplasia) N40.0 Hypertension I10 Dementia F03.90
--- NOTE | 2019-12-05 09:20 | CT_ITS ---
WS: [id number] CT ABDOMEN PELVIS TECHNIQUE: Contrast-enhanced CT of the abdomen and pelvis with coronal and sagittal reformatted image s. CLINICAL INFORMATION: sepsis, abdominal pain COMPARISON: CT pelvis 12 4019 DLP: 1364.[address] scans at [facility] use at least one of these dose optimization techniques: automat ed exposure control; mA and/or kV adjustment per patient size (includes targeted exams where dose is matched to clinical indication); or iterative reconstruction. FINDINGS: Normal liver. Cholelithiasis. Normal portal vein and splenic vein. 13 mm hepatic cyst in the caudate. Normal portal vein and splenic vein. Fatty atrophy of the pancreas. Normal renal parenchymal enhance ment. No hydronephrosis. Bladder is decompressed. Nuñez catheter in place. Pelvic phleboliths. Promin ent prostate enlargement. Slight atelectasis left lung base. Normal gastroesophageal junction. Fluid distended loops of small b owel in the left upper quadrant. No evidence of high-grade obstruction. Mild rectosigmoid constipation. Diverticulosis. Small amount of inflammatory stranding in the left lo wer quadrant suspicious for early or mild diverticulitis. No abscess. Notified Toña Allan DO at 12/05/2019 10:[address]/CT abdomen pelvis w con* [id number] IMPRESSION: 1. Sigmoid diverticulosis with suspected mild acute diverticulitis. No evidenc e of abscess or drainable fluid collection. 2. Cholelithiasis. This can be followed up with ultrasound. 3. Slightly prominent fluid-filled loops of small bowel in the left upper quad rant. No evidence of high-grade obstruction. 4. Mild rectosigmoid constipation. 5. Prostate enlargement. Recommend correlation PSA.
--- NOTE | 2019-12-05 09:23 | ECG_ITS ---
Measurements Intervals [place] Rate: 68 P: 59 TX: 170 QRS: -3 QRSD: 85 T: 43 QT: 430 QTc: 458 SINUS RHYTHM WITH OCCASIONAL SUPRAVENTRICULAR PREMATURE COMPLEXES NONSPECIFIC ST & T-WAVE ABNORMALITY Compared to ECG 11/23/2019 16:31:43 Sinus bradycardia no longer present Ventricular premature complex(es) no longer present T-wave abnormality still present Electronically Signed On 12-05-2019 14:40:54 IVORY POLISHER by Leno Ji M.D. [email or web address]
[2019-12-05 09:28] LABS: Ammonia 40 umol/L (16-60)
--- NOTE | 2019-12-05 09:40 | PC.NURSE ---
PT TRANSPORTED TO CT BY STRETCHER WITH TECH
[2019-12-05] MEDS: iodixanol 320 mg/mL 100mL Btl IV (09:56)
[2019-12-05 10:02] LABS: Troponin(5th) Baseline 23 ng/mL (0-15)
[2019-12-05 10:55] LABS: Lactic Sepsis W/Reflex 2.1 mmol/L (0.5-2.2)
--- NOTE | 2019-12-05 11:33 | PC.NURSE ---
at 1133 pt had eleven beat run of V-Tach. ED provider notified. Continuing to monitor.
--- NOTE | 2019-12-05 11:39 | US_ITS ---
WS: [id number] ULTRASOUND ABDOMEN LIMITED CLINICAL INFORMATION: cholelithiasis, sepsis COMPARISON: None. FINDINGS: Liver Size: Enlarged Craniocaudal length: 17.7 cm. Echogenicity: Normal. Surface nodularity: None. Mass (size and location): None. Bile ducts Intrahepatic ducts: Normal. Common bile duct diameter: 5.4 mm. Gallbladder Cholelithiasis Gallstones: Present Gallbladder sludge: None. Gallbladder wall thickenin mm with edema Pericholecystic fluid: None. Sonographic Cool sign: Absent. Pancreas Not well seen Right kidney: Normal. Hydronephrosis: None. Size: 9.8 cm x 5.9 cm x 6.1 cm. Abdominal aorta and IVC Visualized portions are normal. Ascites: None. US/US gall bladder [id number] IMPRESSION: 1. Hepatomegaly. 2. Cholelithiasis with mild gallbladder wall thickening and edema measuring 5 mm. No pericholecystic fluid. Consider early or mild cholecystitis. Gallbladder function could be further evaluated with HIDA scan. Normal common bile duct. 3. Normal right kidney.
[2019-12-05 12:16] LABS: Reflex Lactate Order Y
--- NOTE | 2019-12-05 12:36 | PC.NURSE ---
pt's bp 123/76, levophed gtt decreased to 1mcg/min. ED provider notified. continuing to monitor.
--- NOTE | 2019-12-05 13:12 | PC.NURSE ---
pt's BP 128/72. Levophed gtt turned off. ED provider notified.
--- NOTE | 2019-12-05 13:44 | PC.NURSE ---
pt given hygiene cares
--- NOTE | 2019-12-05 14:31 | PC.NURSE ---
pt's BP 88/55-levophed gtt restarted 1mcg/min. will continue to monitor
[2019-12-05 15:00] LABS: Lactate (Lactic Acid level) 1.6 mmol/L (0.5-2.2)
--- NOTE | 2019-12-05 15:42 | PC.NURSE ---
ED Physician/Director in room to update pt's family members as to cause of delays getting pt to a room. Pt's family members verbalized understanding. Pt has no needs at this time
--- NOTE | 2019-12-05 17:34 | PM.CONSULT ---
Providers/Reason For Consult Consulting Physican/Specialty*: Noah Preciado MD Reason for Consult*: Sepsis Attending Physician: Toña Allan DO Primary Care Provider: Patricia Ramos History of Present Illness History of Present Illness Chief complaint ; Altered mental status HPI ; Anjum Mendoza is a 79 year old male presented to the ER of [facility] with altered mental status, not much history is being obtained from the patient yet patient undergone different work-up including lumbar puncture and he was given 3 L of crystalloid, reported tenderness on physical examination by Dr. Allan, and a CT scan of the abdomen and pelvis was done that showed sigmoid diverticulosis with suspected mild acute diverticulitis and cholelithiasis, ultrasound was done as a complementary study that showed;Cholelithiasis with mild gallbladder wall thickness and edema measuring 5 mm no pericholecystic fluid with consideration of early cholecystitis. Patient was seen and evaluated in the emergency department room 7 Review of Systems General: Reports: ROS unobtainable due to mental status Meds/Allergies Home Medications and Allergies Home Medications Medication Instructions Recorded Confirmed Type atorvastatin 40 mg PO DAILY 12/05/19 12/05/19 History finasteride 5 mg PO DAILY 12/05/19 12/05/19 History memantine 10 mg PO DAILY 12/05/19 12/05/19 History mirtazapine 30 mg PO DAILY 12/05/19 12/05/19 History quetiapine 25 mg PO DAILY 12/05/19 12/05/19 History sotalol 80 mg PO BID 12/05/19 12/05/19 History tamsulosin 0.4 mg PO DAILY 12/05/19 12/05/19 History Allergies Allergy/AdvReac Type Severity Reaction Status Date / Time No Known Allergies Allergy Verified 12/05/19 09:43 Current Medications Current Medications Generic Name Dose Route Start Last Admin Trade Name Freq PRN Reason Stop Dose Admin Norepinephrine Bitartrate 4 mg 254 mls @ 0 mls/hr 12/05/19 08:45 12/05/19 14:31 / Dextrose IV 1 mcg/min .Q0M CINTHYA 3.8 mls/hr Titration Protocol Per Protocol PFSH Acute PFSH: Statuses (acute, chronic, etc) shown below reflect problem list status as previously entered and may not be historically accurate Medical History Atrial fibrillation (Acute) BPH (benign prostatic hyperplasia) (Acute) Chronic anticoagulation (Acute) Coronary artery disease (Acute) Dementia (Acute) Diastolic CHF (Acute) GERD (gastroesophageal reflux disease) (Acute) History of CVA (cerebrovascular accident) (Acute) Hyperlipidemia (Acute) Hypertension (Acute) Lower GI bleed (Acute) Surgical History H/O vasectomy (Acute) Hx of cardiac cath (Acute) 2000, coronary stent placement x3 S/P skin cancer resection (Acute) Lip, shoulder, back Family History Daughter CAD (coronary artery disease) Diabetes Son CAD (coronary artery disease) Social History Smoking and tobacco status: unknown if ever smoked Alcohol intake: unknown Substance/Drug Use: unknown Household members: spouse Vitals/I&O/Wt Last Vital Signs Temp 97.7 F 12/05/19 09:05 Pulse 59 L 12/05/19 14:49 Resp 20 H 12/05/19 14:49 BP 135/74 12/05/19 14:49 Pulse Ox 96 12/05/19 14:49 12/05/19 12/05/19 12/05/19 06:59 14:59 22:59 Intake Total 3300 / 3300 30.78 / 30.78 Balance 3300 / 3300 30.78 / 30.78 Weight last 48 hrs Weight 200 lb Physical Exam Const: COMMON NORMALS: no apparent distress and oriented x3 GENERAL APPEARANCE: cooperative ORIENTATION/CONSCIOUSNESS: Yes awake, Yes oriented to person, Yes oriented to place and Yes oriented to time HENMT: COMMON NORMALS: normocephalic HEAD & SCALP: normocephalic Eye: COMMON NORMALS: PERRL and no scleral icterus PUPIL: Yes PERRL Lymph: LYMPHATIC: no lymphadenopathy noted Chest: COMMONS NORMALS: inspection of chest normal Resp: COMMON NORMALS: normal respiratory effort and clear to auscultation bilaterally AUSCULTATION: clear to auscultation bilaterally Cardio: COMMON NORMALS: S1 normal heart sound and S2 normal heart sound; negative for no murmurs HEART SOUNDS: S1 normal and S2 normal GI: COMMON NORMALS: soft to palpation; negative for no hepatosplenomegaly INSPECTION: Yes normal to inspection PALPATION: Yes soft, No firm, Yes tender (Mild tenderness at the suprapubic region), No guarding, No rigid and No no hepatosplenomegaly Neuro: COMMON NORMALS: oriented x3 SENSORIUM/ORIENTATION: Yes oriented to person, Yes oriented to place and Yes oriented to time Psych: COMMON NORMALS: mental status grossly normal Skin: COMMON NORMALS: no rashes or lesions noted GENERAL SKIN EXAM: no rashes or lesions noted Urinary Catheter Management^: Nuñez: Cath Placed During This Visit: no Data Micro: Micro: Microbiology 12/05/19 04:41 Gram Stain - Final Cerebrospinal Flu id 12/05/19 01:48 Blood Culture - Pr eliminary Blood SPECIMEN COLLEC MARYLOU 12/05/19 01:32 Blood Culture - Pr eliminary Blood SPECIMEN [facility] A&P Assessment and plan (1) Sepsis: After a limited history physical examination and reviewing the chart and images with my personsal interpretation, I do not see an indication for surgical intervention at this point, that I did notice some changes at the right pelvicalyceal junction of the right kidney that would need to be reviewed by our radiologist again. We will continue to follow Thank you for consulting general surgery to participate taking care Status: Acute Code(s): A41.9 - Sepsis, unspecified organism Consult Attestations Medical Necessity Statement: Per hospitalist service Coding Level of Care Code Acute Oil Spraying Machine Operator for [facility] Fwd Exam Problem Focused Diagnoses Sepsis A41.9
--- NOTE | 2019-12-05 17:47 | PC.NURSE ---
called report to JOHN Casey in ICU
[2019-12-05] MEDS: piperacillin-tazobactam 3.375 GM in sodium chloride 0.9% (plus) 50 ML 12.5 GM PHA2DOSE (20:29)
[2019-12-05] MEDS: HYDROcodone-acetaminophen 5-325 mg Tablet 1 TAB PO (20:33)
[2019-12-05] MEDS: sodium chloride 0.9% 1,000 ML 100 ML IV (20:33)
[2019-12-05] MEDS: sotalol 80 mg Tablet PO (20:33)
[2019-12-05] MEDS: enoxaparin 40 mg/0.4 mL Syringe SUBCUT (20:34)
[2019-12-05] MEDS: LORazepam 2 mg/mL INJ 1 mL 0.5 MG IVP (22:53)
[2019-12-06] VITALS (11 sets, daily range): BP systolic 107–137; BP diastolic 62–95; PULSE 64–124; RESP 16–25; TEMP 36.5–37.1; O2SAT 91–95; BMI 28.7
[2019-12-06] MEDS: piperacillin-tazobactam 3.375 GM in sodium chloride 0.9% (plus) 50 ML 12.5 GM PHA2DOSE ×2 (04:18→15:46)
[2019-12-06 04:24] LABS: Basophils % 0.3 %; Eosinophils % 0.1 %; Hematocrit 43.2 % (42.0-52.0); Hemoglobin 13.6 g/dL (11.7-16.6); Lymphocytes # 1.2 10^3/uL (0.8-4.8); Lymphocytes % 7.8 %; Mean Corpuscular HGB Conc 31.5 g/dL (30.0-36.0); Mean Corpuscular Hemoglobin 29.6 pg (28.0-34.0); Mean Corpuscular Volume 93.9 fL (80-94); Mean Platelet Volume 10.8 fL (7.4-10.4); Monocytes # 1.5 10^3/uL (0.2-0.9); Monocytes % 9.9 %; Neutrophils # 12.7 10^3/uL (1.8-7.7); Nucleated Red Blood Cells % 0 %; Platelet Count 162 10^3/cmm (130-400); Red Cell Distribution Width 13.4 % (12.1-15.1); White Blood Count 15.6 10^3/uL (4.0-10.0)
[2019-12-06 04:38] LABS: Alanine Aminotransferase 11 U/L (0-41); Albumin Level 3.1 g/dL (3.5-5.2); Alkaline Phosphatase 79 IU/L (40-130); Anion Gap 14.7 (5-19); Blood Urea Nitrogen 16 mg/dL (8-23); Calcium 9.5 mg/Dl (8.8-10.2); Carbon Dioxide 25 mmol/L (22-29); Chloride 104 mmol/L (98-107); Globulin 3.6 g/dL (1.3-4.6); Glucose 112 mg/dL (74-106); Potassium 3.7 mmol/L (3.5-5.1); Sodium 140 mmol/L (136-145); Total Bilirubin 0.5 mg/dL (0.15-1.2); Total Protein 6.7 g/dL (6.6-8.7)
[2019-12-06 04:55] LABS: Aspartate Amino Transferase 20 U/L (0-40)
--- NOTE | 2019-12-06 07:01 | PC.NURSE ---
dr daigle at bedside. order to remove vick. pt confused and combative. order for 1:1 sitter. family at bedside. pt incontinent of large stool . harlan santiago.
--- NOTE | 2019-12-06 07:54 | P.PN_ITS ---
Subjective Subjective: Interval history: Patient awake in bed at time of exam this morning. Trying to pull out Nuñez catheter, also pulling out IV. Daughter at bedside. Discussed with patient need for continued hospitalization and continued IV antibiotics. Long discussion with patient's daughter at bedside. She verbalizes understanding with plan Vitals/I&O/Wt Last Vital Signs Temp 98.2 F 12/06/19 06:00 Pulse 77 12/06/19 06:00 Resp 18 12/06/19 06:00 BP 109/62 12/06/19 06:00 Pulse Ox 95 12/06/19 06:00 12/05/19 12/06/19 12/06/19 22:59 06:59 14:59 Intake Total 222 / 252.78 50 / 302.78 Balance 222 / 252.78 50 / 302.78 Weight last 48 hrs Weight 90.9 kg Weight 90.718 kg Physical Exam Const: COMMON NORMALS: oriented x3 ORIENTATION/CONSCIOUSNESS: Yes awake, Yes oriented to person and Yes oriented to place HENMT: COMMON NORMALS: normocephalic and head/scalp atraumatic HEAD & SCALP: normocephalic and atraumatic Eye: COMMON NORMALS: PERRL PUPIL: Yes PERRL Neck/C-Spine: COMMON NORMALS: supple Resp: COMMON NORMALS: clear to auscultation bilaterally AUSCULTATION: clear to auscultation bilaterally, no rhonchi and no wheezes Cardio: COMMON NORMALS: regular rate and regular rhythm RATE: regular rate RHYTHM: regular rhythm HEART SOUNDS: murmur systolic GI: INSPECTION: No abdominal distension and Yes central obesity OTHER: Improved tenderness to palpation, worse in the epigastric and right lower quadrant, no guarding or rigidity : COMMON NORMALS: Yes scrotum normal and Yes no scrotal swelling OTHER: Nuñze catheter removed during exam Extremity: COMMON NORMALS: no clubbing, cyanosis or edema and no calf tenderness Neuro: COMMON NORMALS: oriented x3, CN's II-XII intact bilaterally, moves all extremities and no focal motor deficits SENSORIUM/ORIENTATION: Yes oriented to person and Yes oriented to place SPEECH: speech normal OTHER: Reports chronic vision changes from prior CVA, oriented to person and place, not oriented to time. No appreciable facial droop, answering yes and no questions appropriately Psych: COMMON NORMALS: cooperative Skin: COMMON NORMALS: no rashes or lesions noted GENERAL SKIN EXAM: no rashes or lesions noted Urinary Catheter Management^: Nuñez: Cath Placed During This Visit: no Data Micro: Micro: Microbiology 12/05/19 01:48 Blood Culture - Pr eliminary Blood NEGATIVE TO CONCHITA E 12/05/19 01:32 Blood Culture - Pr eliminary Blood NEGATIVE TO CONCHITA E 12/05/19 04:41 Gram Stain - Final Cerebrospinal Flu id A&P Assessment and plan (1) Sepsis: Sepsis secondary to diverticulitis Also noted cholelithiasis, discussed with general surgeon for consultation due to patient having sepsis with septic shock Much improved today and remains off of levo fed Hemoglobin and heart rate remained stable, afebrile today Continue on broad-spectrum antibiotics Status: Acute Code(s): A41.9 - Sepsis, unspecified organism (2) History of CVA (cerebrovascular accident): With residual lower extremity weakness and chronic vision changes and near vision loss, no acute change Status: Acute Code(s): Z86.73 - Personal history of transient ischemic attack (TIA), and cerebral infarction without residual deficits (3) Coronary artery disease: Continue home atorvastatin, no longer on aspirin due to history of lower GI bleed Status: Acute Code(s): I25.10 - Atherosclerotic heart disease of [place] coronary artery without angina pectoris (4) Atrial fibrillation: Continue home sotalol Status: Acute Code(s): I48.91 - Unspecified atrial fibrillation (5) GERD (gastroesophageal reflux disease): Protonix 40 mg daily Status: Acute Code(s): K21.9 - Gastro-esophageal reflux disease without esophagitis (6) Diastolic CHF: Without exacerbation Status: Acute Code(s): I50.30 - Unspecified diastolic (congestive) heart failure (7) BPH (benign prostatic hyperplasia): Continue home Flomax and finasteride Status: Acute Code(s): N40.0 - Benign prostatic hyperplasia without lower urinary tract symptoms (8) Hypertension: Restart home sotalol Status: Acute Code(s): I10 - Essential (primary) hypertension (9) Dementia: Increased alertness and restlessness, able to provide his name, date of and location but not oriented to time. Daughter at bedside reports that he is at his baseline. Transfer out of ICU and placed sitter for precautions Status: Acute Code(s): F03.90 - Unspecified dementia without behavioral disturbance Additional A&P Information Additional A&P Information: Acute metabolic encephalopathy: Family reports patient is at baseline today Diverticulitis: Continue on IV Zosyn at this time, de-escalate antibiotic coverage, initially presented with septic shock, now off of Levophed and shows improvement, mild tenderness to palpation, much improved from admission, general surgery consulted, will follow with recommendations. Plan for transfer out of the ICU today. Cholelithiasis with question of early cholecystitis, general surgery consulted as noted above, continue on IV antibiotics, patient has much improvement today but will likely need cholecystectomy in the future Attestations Medical Necessity Statement*: Patient requires further hospitalization due to sepsis secondary to diverticulitis Coding Level of Care Code Acute Chief Fishery Division for [facility] Fwd Diagnoses Sepsis A41.9 History of CVA (cerebrovascular accident) Z86.73 Coronary artery disease I25.10 Atrial fibrillation I48.91 GERD (gastroesophageal reflux disease) K21.9 Diastolic CHF I50.30 BPH (benign prostatic hyperplasia) N40.0 Hypertension I10 Dementia F03.90
--- NOTE | 2019-12-06 09:30 | P.PN_ITS ---
Subjective Subjective: Interval history: Patient overall is about the same No acute events overnight Vitals/I&O/Wt Last Vital Signs Temp 98.2 F 12/06/19 06:00 Pulse 90 12/06/19 08:00 Resp 18 12/06/19 06:00 BP 109/62 12/06/19 06:00 Pulse Ox 92 12/06/19 08:00 12/05/19 12/06/19 12/06/19 22:59 06:59 14:59 Intake Total 222 / 252.78 50 / 302.78 Balance 222 / 252.78 50 / 302.78 Weight last 48 hrs Weight 200 lb 6.4 oz Weight 200 lb Physical Exam HENMT: COMMON NORMALS: normocephalic HEAD & SCALP: normocephalic GI: COMMON NORMALS: soft to palpation; negative for no hepatosplenomegaly INSPECTION: Yes normal to inspection PALPATION: Yes soft, No firm, No tender, No guarding, No rigid and No no hepatosplenomegaly Skin: COMMON NORMALS: no rashes or lesions noted GENERAL SKIN EXAM: no rashes or lesions noted Urinary Catheter Management^: Nuñez: Cath Placed During This Visit: no Data Micro: Micro: Microbiology 12/05/19 01:48 Blood Culture - Pr eliminary Blood NEGATIVE TO CONCHITA E 12/05/19 01:32 Blood Culture - Pr eliminary Blood NEGATIVE TO CONCHITA E 12/05/19 04:41 Gram Stain - Final Cerebrospinal Flu id A&P Assessment and plan (1) Sepsis: From surgical standpoint reviewed there is no acute surgical intervention at this point I did discuss with the family in length and in depth about the potential benefit of colonoscopy down the road since the patient does have diverticulitis and likely if they agree will be a colonoscopy in 6 weeks. To have the inflammation subsides. I do recall that I was involved in this patient's care before couple of months approximately and he had a lower GI bleed and was offered a diagnostic EGD and colonoscopy at that time and the family decided not to proceed. Assurance and education The discussion with the family did happen in the presence of patient's spouse daughter and Carmela B[employer]QU[employer] OFFICER nurse All questions have been answered and all concerns have been addressed to patient's satisfaction. Thank you for consulting general surgery to participate taking care Status: Acute Code(s): A41.9 - Sepsis, unspecified organism Attestations Medical Necessity Statement*: Per hospitalist service Coding Level of Care Code Acute Circuits Engineer for g Fwd Diagnoses Sepsis A41.9
[2019-12-06] MEDS: LORazepam 2 mg/mL INJ 1 mL 0.5 MG IVP (15:06)
[2019-12-06] MEDS: enoxaparin 40 mg/0.4 mL Syringe SUBCUT (15:46)
[2019-12-06] MEDS: sotalol 80 mg Tablet PO (18:06)
--- NOTE | 2019-12-06 18:12 | PC.NURSE ---
Patient in a-fib. Was able arouse patient enough to take 1800 dose sotalol. Will monitor for rate stabilization.
--- NOTE | 2019-12-06 19:21 | PC.NURSE ---
Patient's heart rhythm converted back to sinus rhythm in the 60s-70s.
[2019-12-06] MEDS: sodium chloride 0.9% 1,000 ML 100 ML IV (22:24)
[2019-12-06] MEDS: metoprolol tartrate 1 mg/1 mL SDV 5 mL 5 MG IV (23:50)
--- NOTE | 2019-12-06 23:58 | PC.NURSE ---
Pt converted from SR to Afib with RVR, rate 120's-130's. Pt is asymptomatic. Dr. Aquino notified by phone and received orders to 5mg IV metoprolol X 1 dose and was given at this time. Will continue to monitor.
[2019-12-07] MEDS: sotalol 80 mg Tablet 40 MG PO (01:11)
--- NOTE | 2019-12-07 02:13 | PC.NURSE ---
Converted to sinus rhythm rate 77. Will continue to monitor.
[2019-12-07] MEDS: piperacillin-tazobactam 3.375 GM in sodium chloride 0.9% (plus) 50 ML IV ×3 (03:39→23:32)
[2019-12-07 04:00] VITALS: BP 115/69; PULSE 73; RESP 15; TEMP 37.2; O2SAT 95
[2019-12-07 05:26] LABS: Basophils % 0.4 %; Eosinophils # 0.2 10^3/uL (0.0-0.8); Eosinophils % 1.6 %; Hematocrit 40.3 % (42.0-52.0); Hemoglobin 12.4 g/dL (11.7-16.6); Lymphocytes # 1.8 10^3/uL (0.8-4.8); Lymphocytes % 16.6 %; Mean Corpuscular HGB Conc 30.8 g/dL (30.0-36.0); Mean Corpuscular Hemoglobin 29.4 pg (28.0-34.0); Mean Corpuscular Volume 95.5 fL (80-94); Mean Platelet Volume 10.2 fL (7.4-10.4); Monocytes % 9.3 %; Neutrophils # 7.6 10^3/uL (1.8-7.7); Neutrophils % 71.6 %; Nucleated Red Blood Cells % 0 %; Platelet Count 165 10^3/cmm (130-400); Red Blood Count 4.22 10^6/uL (4.1-5.3); Red Cell Distribution Width 13.3 % (12.1-15.1); White Blood Count 10.5 10^3/uL (4.0-10.0)
[2019-12-07 05:40] LABS: Alanine Aminotransferase 8 U/L (0-41); Albumin Level 2.8 g/dL (3.5-5.2); Alkaline Phosphatase 56 IU/L (40-130); Anion Gap 14.8 (5-19); Aspartate Amino Transferase 13 U/L (0-40); Blood Urea Nitrogen 15 mg/dL (8-23); Calcium 8.9 mg/Dl (8.8-10.2); Carbon Dioxide 20 mmol/L (22-29); Chloride 108 mmol/L (98-107); Globulin 2.6 g/dL (1.3-4.6); Glucose 92 mg/dL (74-106); Potassium 3.8 mmol/L (3.5-5.1); Sodium 139 mmol/L (136-145); Total Bilirubin 0.4 mg/dL (0.15-1.2); Total Protein 5.4 g/dL (6.6-8.7)
--- NOTE | 2019-12-07 06:59 | PC.NURSE ---
Report given to JOHN Montano. Pt to transfer to room med-surg room 266. Gabriella notified of upcoming transfer.
[2019-12-07 08:00] VITALS: BP 158/93; PULSE 58; RESP 16; TEMP 37.5; O2SAT 95
--- NOTE | 2019-12-07 08:39 | PC.NURSE ---
Dr Allan on unit. Verbal order received to Hold IV fluids at this time.
[2019-12-07] MEDS: atorvastatin 40 mg Tablet PO (08:41)
[2019-12-07] MEDS: finasteride 5 mg Tablet PO (08:41)
[2019-12-07] MEDS: pantoprazole DR 40 mg Tablet PO (08:41)
[2019-12-07] MEDS: sotalol 80 mg Tablet PO ×2 (08:41→17:08)
[2019-12-07] MEDS: tamsulosin 0.4 mg Capsule PO (08:41)
--- NOTE | 2019-12-07 10:22 | P.PN_ITS ---
Subjective Subjective: Interval history: Patient seen in ICU earlier this morning. He reported that his abdomen was feeling better today. Nursing noted that patient was slightly restless overnight but easily redirected. Family reports that he appears to be at his baseline with his dementia. Discussed with family need for continued hospitalization, they verbalized understanding and agreed with plan. Also discussed fdc facility placement due to his deconditioning and need for further therapies, they verbalized understanding and agreed with plan Vitals/I&O/Wt Last Vital Signs Temp 99.5 F 12/07/19 08:00 Pulse 58 L 12/07/19 08:00 Resp 16 12/07/19 08:00 BP 158/93 12/07/19 08:00 Pulse Ox 95 12/07/19 08:00 12/06/19 12/07/19 12/07/19 22:59 06:59 14:59 Intake Total 6.042 / 56.042 Balance 6.042 / 56.042 Weight last 48 hrs Weight 81.102 kg Weight 90.9 kg Physical Exam Const: GENERAL APPEARANCE: cooperative ORIENTATION/CONSCIOUSNESS: Yes awake, Yes oriented to person and Yes oriented to place HENMT: COMMON NORMALS: normocephalic and head/scalp atraumatic HEAD & SCALP: normocephalic and atraumatic Eye: COMMON NORMALS: PERRL PUPIL: Yes PERRL Neck/C-Spine: COMMON NORMALS: supple Resp: COMMON NORMALS: clear to auscultation bilaterally AUSCULTATION: clear to auscultation bilaterally, no rhonchi and no wheezes Cardio: COMMON NORMALS: regular rate and regular rhythm RATE: regular rate RHYTHM: regular rhythm HEART SOUNDS: murmur systolic GI: COMMON NORMALS: non-tender INSPECTION: No abdominal distension and Yes central obesity AUSCULTATION: Yes hypoactive bowel sounds PALPATION: Yes tender OTHER: Patient reports some vague discomfort on outpatient in the abdomen, no guarding or rigidity, reports improvement, normal bowel sounds : COMMON NORMALS: Yes scrotum normal and Yes no scrotal swelling OTHER: Nuñez catheter removed during exam Extremity: COMMON NORMALS: no clubbing, cyanosis or edema and no calf tenderness Neuro: COMMON NORMALS: CN's II-XII intact bilaterally, moves all extremities and no focal motor deficits SENSORIUM/ORIENTATION: Yes oriented to person and Yes oriented to place SPEECH: speech normal OTHER: Reports chronic vision changes from prior CVA, oriented to person and place, not oriented to time. Psych: COMMON NORMALS: cooperative Skin: COMMON NORMALS: no rashes or lesions noted GENERAL SKIN EXAM: no rashes or lesions noted Urinary Catheter Management^: Nuñez: Cath Placed During This Visit: no Data Micro: Micro: Microbiology 12/05/19 04:41 Gram Stain - Final Cerebrospinal Flu id CSF Culture - Prel iminary 12/05/19 03:36 Urine Culture - Fi nal Urine,Clean Catch 12/05/19 01:48 Blood Culture - Pr eliminary Blood Gram positive r od A&P Assessment and plan (1) Sepsis: Sepsis secondary to diverticulitis Improved tenderness to the abdomen today, remains afebrile, blood pressures improved. Sinew on IV Zosyn Increase diet as tolerated Discontinue IV fluids today Status: Acute Code(s): A41.9 - Sepsis, unspecified organism (2) History of CVA (cerebrovascular accident): With residual lower extremity weakness and chronic vision changes and near vision loss, no acute change Status: Acute Code(s): Z86.73 - Personal history of transient ischemic attack (TIA), and cerebral infarction without residual deficits (3) Coronary artery disease: Continue home atorvastatin, no longer on aspirin due to history of lower GI bleed Status: Acute Code(s): I25.10 - Atherosclerotic heart disease of [place] coronary artery without angina pectoris (4) Atrial fibrillation: Continue home sotalol Did go into atrial fibrillation with RVR overnight as he had initially not taken his home medication, once he took his home medication converted back into sinus rhythm Previously on anticoagulation, this is been discontinued and will continue to hold off at this time due to history of lower GI bleed Status: Acute Code(s): I48.91 - Unspecified atrial fibrillation (5) GERD (gastroesophageal reflux disease): Protonix 40 mg daily Status: Acute Code(s): K21.9 - Gastro-esophageal reflux disease without esophagitis (6) Diastolic CHF: Without exacerbation Status: Acute Code(s): I50.30 - Unspecified diastolic (congestive) heart failure (7) BPH (benign prostatic hyperplasia): Continue home Flomax and finasteride Status: Acute Code(s): N40.0 - Benign prostatic hyperplasia without lower urinary tract symptoms (8) Hypertension: Continue on sotalol Status: Acute Code(s): I10 - Essential (primary) hypertension (9) Dementia: Mentation appears to be at baseline We will continue with sitter at this time for precautions Status: Acute Code(s): F03.90 - Unspecified dementia without behavioral disturbance Additional A&P Information Additional A&P Information: Acute metabolic encephalopathy: Family reports patient is at baseline today Diverticulitis: Continue IV Zosyn, blood pressures remained stable and patient reports improved symptoms. Will discontinue IV fluids and increase diet as tolerated. Recommend outpatient colonoscopy in 6 weeks, will need outpatient follow-up with Dr. Preciado following discharge Cholelithiasis: Recommend outpatient surgical follow-up Attestations Medical Necessity Statement*: Patient requires continued hospitalization due to sepsis, dementia, atrial fibrillation, acute diverticulitis Coding Level of Care Code Acute Land Conservation Specialist for g Fwd Diagnoses Sepsis A41.9 History of CVA (cerebrovascular accident) Z86.73 Coronary artery disease I25.10 Atrial fibrillation I48.91 GERD (gastroesophageal reflux disease) K21.9 Diastolic CHF I50.30 BPH (benign prostatic hyperplasia) N40.0 Hypertension I10 Dementia F03.90
[2019-12-07 12:00] VITALS: BP 120/72; PULSE 66; RESP 18; TEMP 37.1; O2SAT 94
--- NOTE | 2019-12-07 14:15 | PC.CHAP ---
Pastoral Care Encounter/Spiritual Assessment Type of Contact [] Declined collection technician visit [] Patient/Family/Request visit [] Outpatient visit [] Follow-up visit [] Physician referral [] Code/Alert [] Routine visit [] Staff referral [] Actively dying [X] Patient sleeping [] Family support [] [] Out of room [] Palliative care [] [] Receiving care in room [] Pre-surgical visit [] Trauma [] Long length of stay [] ICU visit [] Other: Relational/Emotional Strength [] Patient feels connected with others/family/visitors/staff [] Distress [] Loneliness/isolation [] Abandonment Spirituality of Patient [] Person of Olivia [] Attends Pentecostalism of their [place] [] Believes in Prayer [] Reads Bible or Taoism materials [] There are Spiritual issues to be addressed Supervisor Mixing Interventions [] Prayer [] Active listening [] Non-anxious presence [] Spiritual/emotional support [] Crisis/trauma care [] Spiritual counseling [] Bereavement support [] Provided bereavement packet [] Provided Bible/devotional materials [] Provided toy/stuffed animal, coloring book to patient or family member [] Completed spiritual assessment [] Provided Communion [] Anointing/[place] [] Salvation [] Other: Impact on Illness or Injury [] Angry [] Fearful [] Anxious [] Often cries [] Exhaustion [] Unable to work [] Unable to attend orthodoxy [] Unable to walk/stand [] Unable to read [] Unable to drive [] Unable to eat/drink [] Unable to sleep [] Unable to be with family [] Other: Summary PATIENT WAS SLEEPING, MACHINERY MOVER WILL REVISIT. Time spent with patient 5 min.
[2019-12-07] MEDS: enoxaparin 40 mg/0.4 mL Syringe SUBCUT (15:36)
[2019-12-07 15:57] VITALS: BP 144/87; PULSE 70; RESP 16; TEMP 36.8; O2SAT 95
[2019-12-07 17:56] VITALS: PULSE 59; O2SAT 91
[2019-12-07 20:00] VITALS: BP 126/73; PULSE 73; RESP 18; TEMP 36.9; O2SAT 95
--- NOTE | 2019-12-07 21:11 | PC.NURSE ---
Assessment: I agree with Yenifer's assessment on this patient.
[2019-12-08] VITALS (7 sets, daily range): BP systolic 131–157; BP diastolic 64–90; PULSE 49–74; RESP 18–20; TEMP 36.5–37.1; O2SAT 91–96
[2019-12-08 05:13] LABS: Basophils % 0.5 %; Eosinophils # 0.2 10^3/uL (0.0-0.8); Eosinophils % 2.8 %; Hematocrit 38.3 % (42.0-52.0); Hemoglobin 12.1 g/dL (11.7-16.6); Lymphocytes # 1.6 10^3/uL (0.8-4.8); Lymphocytes % 21.1 %; Mean Corpuscular HGB Conc 31.6 g/dL (30.0-36.0); Mean Corpuscular Hemoglobin 29.4 pg (28.0-34.0); Mean Platelet Volume 10.8 fL (7.4-10.4); Monocytes # 0.7 10^3/uL (0.2-0.9); Monocytes % 9.5 %; Neutrophils # 4.9 10^3/uL (1.8-7.7); Neutrophils % 65.7 %; Nucleated Red Blood Cells % 0 %; Platelet Count 178 10^3/cmm (130-400); Red Blood Count 4.12 10^6/uL (4.1-5.3); White Blood Count 7.4 10^3/uL (4.0-10.0)
--- NOTE | 2019-12-08 05:36 | PC.NURSE ---
pt incont of urine florencio care per staff. voided small amount to urinal
[2019-12-08 05:50] LABS: Anion Gap 15.2 (5-19); Blood Urea Nitrogen 15 mg/dL (8-23); Calcium 8.9 mg/Dl (8.8-10.2); Carbon Dioxide 19 mmol/L (22-29); Chloride 109 mmol/L (98-107); Glucose 88 mg/dL (74-106); Potassium 3.2 mmol/L (3.5-5.1); Sodium 140 mmol/L (136-145)
[2019-12-08] MEDS: piperacillin-tazobactam 3.375 GM in sodium chloride 0.9% (plus) 50 ML IV ×3 (06:38→23:36)
[2019-12-08] MEDS: pantoprazole DR 40 mg Tablet PO (08:11)
[2019-12-08] MEDS: atorvastatin 40 mg Tablet PO (08:11)
[2019-12-08] MEDS: finasteride 5 mg Tablet PO (08:11)
[2019-12-08] MEDS: sotalol 80 mg Tablet PO ×2 (08:11→17:25)
[2019-12-08] MEDS: tamsulosin 0.4 mg Capsule PO (08:11)
--- NOTE | 2019-12-08 11:22 | P.PN_ITS ---
Subjective Subjective: Interval history: Patient sleeping in bed at time of exam this morning. Family members at bedside including his , daughter and sister. Patient reports that his abdomen is feeling somewhat better today, reports that he only ate a small amount of his breakfast. But denies any nausea or vomiting. Patient stated no chest pain or shortness of breath. Oriented to person and place Discussed with and patient's daughter at bedside, they reported that they would like to continue to look at long-term facility placement due to his continued weakness and prior deficits from his previous strokes. Discussed that this would be the best plan for patient due to his deconditioning. Vitals/I&O/Wt Last Vital Signs Temp 97.7 F 12/08/19 11:17 Pulse 58 L 12/08/19 11:17 Resp 18 12/08/19 11:17 BP 134/81 12/08/19 11:17 Pulse Ox 96 12/08/19 11:17 12/07/19 12/08/19 12/08/19 22:59 06:59 14:59 Intake Total 170 / 1220 50.000 / 1270.000 290 / 290 Output Total 0 / 0 50 / 50 Balance 170 / 1220 0 / 1220.000 290 / 290 Weight last 48 hrs Weight 81.828 kg Weight 81.102 kg Physical Exam Const: GENERAL APPEARANCE: cooperative ORIENTATION/CONSCIOUSNESS: Yes awake, Yes oriented to person and Yes oriented to place HENMT: COMMON NORMALS: normocephalic and head/scalp atraumatic HEAD & SCALP: normocephalic and atraumatic Eye: COMMON NORMALS: PERRL PUPIL: Yes PERRL Neck/C-Spine: COMMON NORMALS: supple Resp: COMMON NORMALS: clear to auscultation bilaterally AUSCULTATION: clear to auscultation bilaterally, no rhonchi and no wheezes Cardio: COMMON NORMALS: regular rate and regular rhythm RATE: regular rate RHYTHM: regular rhythm HEART SOUNDS: murmur systolic GI: COMMON NORMALS: non-tender INSPECTION: No abdominal distension and Yes central obesity PALPATION: Yes tender OTHER: Normal bowel sounds, no tenderness to palpation on exam today : COMMON NORMALS: Yes scrotum normal and Yes no scrotal swelling OTHER: Nuñez catheter removed during exam Extremity: COMMON NORMALS: no clubbing, cyanosis or edema and no calf tenderness Neuro: COMMON NORMALS: CN's II-XII intact bilaterally, moves all extremities and no focal motor deficits SENSORIUM/ORIENTATION: Yes oriented to person and Yes oriented to place SPEECH: speech normal OTHER: Reports chronic vision changes from prior CVA, oriented to person and place, not oriented to time. Psych: COMMON NORMALS: cooperative Skin: COMMON NORMALS: no rashes or lesions noted GENERAL SKIN EXAM: no rashes or lesions noted Urinary Catheter Management^: Nuñez: Cath Placed During This Visit: no Data Micro: Micro: Microbiology 12/07/19 13:20 Blood Culture - Pr eliminary Blood SPECIMEN [facility] 12/07/19 13:15 Blood Culture - Pr eliminary Blood SPECIMEN [facility] 12/05/19 01:48 Blood Culture - Pr eliminary Blood Gram positive r od Gram Negative R ods 12/05/19 04:41 Gram Stain - Final Cerebrospinal Flu id CSF Culture - Prel iminary 12/05/19 03:36 Urine Culture - Fi nal Urine,Clean Catch A&P Assessment and plan (1) Sepsis: Sepsis secondary to diverticulitis Continue IV Zosyn Awaiting final blood cultures Increase to GI soft diet Status: Acute Code(s): A41.9 - Sepsis, unspecified organism (2) History of CVA (cerebrovascular accident): With residual lower extremity weakness and chronic vision changes and near vision loss, no acute change Status: Acute Code(s): Z86.73 - Personal history of transient ischemic attack (TIA), and cerebral infarction without residual deficits (3) Coronary artery disease: Continue home atorvastatin, no longer on aspirin due to history of lower GI bleed Status: Acute Code(s): I25.10 - Atherosclerotic heart disease of [place] coronary artery without angina pectoris (4) Atrial fibrillation: Continue home sotalol Previously on anticoagulation, this is been discontinued and will continue to hold off at this time due to history of lower GI bleed Status: Acute Code(s): I48.91 - Unspecified atrial fibrillation (5) GERD (gastroesophageal reflux disease): Protonix 40 mg daily Status: Acute Code(s): K21.9 - Gastro-esophageal reflux disease without esophagitis (6) Diastolic CHF: Without exacerbation Status: Acute Code(s): I50.30 - Unspecified diastolic (congestive) heart failure (7) BPH (benign prostatic hyperplasia): Continue home Flomax and finasteride Status: Acute Code(s): N40.0 - Benign prostatic hyperplasia without lower urinary tract symptoms (8) Hypertension: Continue on sotalol Status: Acute Code(s): I10 - Essential (primary) hypertension (9) Dementia: Mentation appears to be at baseline We will continue with sitter at this time for precautions Status: Acute Code(s): F03.90 - Unspecified dementia without behavioral disturbance Additional A&P Information Additional A&P Information: Acute metabolic encephalopathy: Resolved Diverticulitis: Continue IV Zosyn, awaiting final blood cultures, blood culture showing e.coli based on discussion with micro lab today. Transition to oral antibiotics when able to tolerate PO and since he has been afebrile for 48hrs. General surgery consulted on admission, recommend outpatient colonoscopy in 6 weeks. Cholelithiasis: Recommend outpatient surgical follow-up DVT prophylaxis: SCDs, discontinue Lovenox at this time due to history of lower GI bleed Diet: Increase to GI soft diet CODE STATUS: Allow natural Disposition planning: detention facility Attestations Medical Necessity Statement*: Patient requires continued hospitalization due to sepsis secondary to diverticulitis. Coding Level of Care Code Acute Doughnut Batter Mixer for g Fwd Diagnoses Sepsis A41.9 History of CVA (cerebrovascular accident) Z86.73 Coronary artery disease I25.10 Atrial fibrillation I48.91 GERD (gastroesophageal reflux disease) K21.9 Diastolic CHF I50.30 BPH (benign prostatic hyperplasia) N40.0 Hypertension I10 Dementia F03.90
--- NOTE | 2019-12-08 12:31 | DCPLANNER ---
*IMM* Patient received The important message from [employer]. Signed and placed in the chart. Patient now has a copy.
[2019-12-08] MEDS: HYDROcodone-acetaminophen 5-325 mg Tablet 1 TAB PO ×2 (14:20→21:46)
--- NOTE | 2019-12-08 15:07 | PC.CHAP ---
Pastoral Care Encounter/Spiritual Assessment Type of Contact [] Declined utility worker forge visit [x] Patient/Family/Request visit [] Outpatient visit [] Follow-up visit [] Physician referral [] Code/Alert [] Routine visit [] Staff referral [] Actively dying [] Patient sleeping [] Family support [] [] Out of room [] Palliative care [] [x] Receiving care in room [] Pre-surgical visit [] Trauma [x] Long length of stay [] ICU visit [] Other: Relational/Emotional Strength [x] Patient feels connected with others/family/visitors/staff [] Distress [] Loneliness/isolation [] Abandonment Spirituality of Patient [x] Person of Olivia [x] Attends Zoroastrianism of their Olivia [x] Believes in Prayer [] Reads Bible or Yarsani materials [] There are Spiritual issues to be addressed Insulation Power Unit Tender Interventions [x] Prayer [x] Active listening [x] Non-anxious presence [x] Spiritual/emotional support [] Crisis/trauma care [] Spiritual counseling [] Bereavement support [] Provided bereavement packet [] Provided Bible/devotional materials [] Provided toy/stuffed animal, coloring book to patient or family member [x] Completed spiritual assessment [] Provided Communion [] Anointing/[place] [] Salvation [] Other: Impact on Illness or Injury [] Angry [] Fearful [] Anxious [] Often cries [] Exhaustion [] Unable to work [] Unable to attend quaker [] Unable to walk/stand [] Unable to read [] Unable to drive [] Unable to eat/drink [] Unable to sleep [] Unable to be with family [] Other: Summary Patient is elderly with demensia. Family members were present. All believe is prayer and state they are Christians. Family member requested visit by me as Chaplian as I was standing in hallway near patient's door. Family is concerned about patient's mental status. Time spent with patient 15 minutes
[2019-12-09] VITALS (9 sets, daily range): BP systolic 121–151; BP diastolic 74–86; PULSE 51–67; RESP 17–22; TEMP 36.4–37.1; O2SAT 90–93
[2019-12-09] MEDS: ondansetron 2 mg/ML SDV 2 mL 4 MG IVP (00:41)
[2019-12-09] MEDS: LORazepam 2 mg/mL INJ 1 mL 0.5 MG IVP (07:00)
[2019-12-09] MEDS: finasteride 5 mg Tablet PO (10:41)
[2019-12-09] MEDS: atorvastatin 40 mg Tablet PO (10:41)
[2019-12-09] MEDS: pantoprazole DR 40 mg Tablet PO (10:41)
[2019-12-09] MEDS: sotalol 80 mg Tablet PO (10:42)
[2019-12-09] MEDS: tamsulosin 0.4 mg Capsule PO (10:42)
[2019-12-09] MEDS: piperacillin-tazobactam 3.375 GM in sodium chloride 0.9% (plus) 50 ML IV (10:52)
--- NOTE | 2019-12-09 11:26 | PM.DCS ---
Discharge Providers Date of Admission: 12/05/19 05:07 Date of Discharge: 12/09/19 Attending Provider at Admission: Telma Corley MD Attending Provider at Discharge: Toña Allan MD Primary Care Provider: Patricia Ramos Diagnoses at Discharge Discharge Diagnosis (1) Sepsis: Status: Acute Problem details: Resolved Secondary to diverticulitis Transition to oral antibiotics today (2) History of CVA (cerebrovascular accident): Status: Acute Problem details: With no new deficits, chronic vision loss from prior CVA (3) Coronary artery disease: Status: Acute Problem details: Continue on statin, sotalol, no longer on aspirin or Plavix due to significant GI bleed (4) Atrial fibrillation: Status: Acute Problem details: Remains in sinus rhythm, continue sotalol. No longer on anticoagulation due to lower GI bleed (5) GERD (gastroesophageal reflux disease): Status: Acute Problem details: Continue on Protonix (6) Diastolic CHF: Status: Acute Problem details: Without acute exacerbation (7) BPH (benign prostatic hyperplasia): Status: Acute Problem details: Continue on Flomax and finasteride (8) Hypertension: Status: Acute Problem details: Continue on sotalol (9) Dementia: Status: Acute Problem details: Mentation at baseline Reason for Visit Reason for Visit: Reason For Visit: [facility] Hospital Course Hospital Course: Patient was seen and evaluated in the emergency department admitted for further evaluation due to sepsis with septic shock. Patient had a fever of 103 on admission, complete labs and lumbar puncture were performed in the ED due to unknown source. Patient then developed abdominal discomfort and CT scan of the abdomen and pelvis was performed showing acute diverticulitis, no evidence of perforation or abscess formation. General surgery was consulted due to cholelithiasis and patient having septic shock. He was given fluid resuscitation with sepsis bolus, started on broad-spectrum IV antibiotics in been started on Levophed. Blood pressures improved following admission to the ICU and Levophed was quickly titrated off. Patient's symptoms began to drastically improve, his vital signs remained stable and he remained afebrile and he was transitioned to the floor. His diet was increased as tolerated and he did not have any continued abdominal pain or discomfort. On date of discharge she denied any chest pain or shortness of breath, denied any nausea or vomiting with increased diet. Physical Exam Const: GENERAL APPEARANCE: cooperative ORIENTATION/CONSCIOUSNESS: Yes awake, Yes oriented to person and Yes oriented to place HENMT: COMMON NORMALS: normocephalic and head/scalp atraumatic HEAD & SCALP: normocephalic and atraumatic Eye: COMMON NORMALS: PERRL PUPIL: Yes PERRL Neck/C-Spine: COMMON NORMALS: supple Resp: COMMON NORMALS: clear to auscultation bilaterally AUSCULTATION: clear to auscultation bilaterally, no rhonchi and no wheezes Cardio: COMMON NORMALS: regular rate and regular rhythm RATE: regular rate RHYTHM: regular rhythm HEART SOUNDS: murmur systolic GI: COMMON NORMALS: non-tender INSPECTION: No abdominal distension and Yes central obesity PALPATION: Yes tender OTHER: Normal bowel sounds, no tenderness to palpation on exam today : COMMON NORMALS: Yes scrotum normal and Yes no scrotal swelling Extremity: COMMON NORMALS: no clubbing, cyanosis or edema and no calf tenderness Neuro: COMMON NORMALS: CN's II-XII intact bilaterally, moves all extremities and no focal motor deficits SENSORIUM/ORIENTATION: Yes oriented to person and Yes oriented to place SPEECH: speech normal OTHER: Reports chronic vision changes from prior CVA, oriented to person and place, not oriented to time. Psych: COMMON NORMALS: cooperative Skin: COMMON NORMALS: no rashes or lesions noted GENERAL SKIN EXAM: no rashes or lesions noted Urinary Catheter Management^: Nuñez: Cath Placed During This Visit: no Discharge Data Data Completed and Pending: Completed Studies During Hospitalization Category Date Time Status CT abdomen pelvis w con* [id number] Urge nt Cat Scan 12/05/19 09:[address] head wo con* 7 [id number] Urgent Cat Scan 12/05/19 01:22 Completed XR chest 1V barber ble [id number] Stat Exams 12/05/19 01:22 Completed US gall bladder 7 0575 Urgent Ultrasound 12/05/19 11:39 Completed Pending at discharge Category Date Time Status Blood Culture Sta t Lab 12/05/19 01:48 Results Blood Culture Sta t Lab 12/07/19 13:20 Results VDRL on CSF Stat Lab 12/05/19 04:41 Received Vitals: Last Vital Signs Temp 97.7 F 12/09/19 08:00 Pulse 64 12/09/19 08:00 Resp 18 12/09/19 08:00 BP 150/86 12/09/19 08:00 Pulse Ox 92 01/14/20 08:00 Discharge Plan Discharge Patient Disposition: Home, Self-Care Condition: Stable Prescriptions: New pantoprazole 40 mg Tablet,Delayed Release (Dr/Ec) 40 mg PO DAILY 30 Days Qty: 30 RF: 0 Ativan 0.5 mg tablet 0.5 mg PO BID PRN (Reason: anxiety) 2 Days Qty: 4 RF: 0 sulfamethoxazole-trimethoprim [Bactrim DS] 800-160 mg tablet 1 tab PO BID 5 Days Qty: 10 RF: 0 Continued atorvastatin 40 mg tablet 40 mg PO DAILY RF: 0 sotalol 80 mg tablet 80 mg PO BID RF: 0 tamsulosin 0.4 mg capsule 0.4 mg PO DAILY RF: 0 mirtazapine 30 mg tablet 30 mg PO DAILY RF: 0 finasteride 5 mg tablet 5 mg PO DAILY RF: 0 memantine 10 mg tablet 10 mg PO DAILY RF: 0 Discontinued quetiapine 25 mg tablet 25 mg PO DAILY RF: 0 Discharge Orders: Discharge Order (Routine); Ordered 12/09/19 Ordered By: Toña Allan Referrals: Noah Preciado MD [Physician] - 6 Weeks Patricia Ramos FNP [Primary Care Provider] - Discharge Diet: Cardiac, GI soft diet, advance as tolerated. Patient does require assistance with each meal for feeding Discharge Activity: As per PT/OT instructions Activity Restrictions/Additional Instructions: Follow-up with care provider at the residential facility in 2 to 3 days Continue with oral antibiotics as prescribed Continue to monitor renal function with prescribed antibiotic Follow-up with general surgeon, Dr. Preciado in 6 weeks to discuss possibility of colonoscopy and cholecystectomy Oxygen as needed at the residential [facility], currently on room air Continue with physical therapy, occupational therapy and speech therapy Continue to increase ambulation as tolerated GI soft diet, slowly advance as tolerated, high-fiber diet Discharge Attestations Time Spent in Discharge Care*: greater than 30 min Quality Metrics Clinical Quality Measures During this hospital stay, did patient experience: None Coding Level of Care Code Acute Orthopedic Cast Specialist for Tito Fwd Exam Problem Focused Diagnoses Sepsis A41.9 History of CVA (cerebrovascular accident) Z86.73 Coronary artery disease I25.10 Atrial fibrillation I48.91 GERD (gastroesophageal reflux disease) K21.9 Diastolic CHF I50.30 BPH (benign prostatic hyperplasia) N40.0 Hypertension I10 Dementia F03.90
[2019-12-09] MEDS: HYDROcodone-acetaminophen 5-325 mg Tablet 1 TAB PO (14:57)
[2019-12-09 15:17] LABS: VDRL on CSF NON-REACTIVE
--- NOTE | 2019-12-31 11:41 | PC.SOCIAL ---
Micro report called on blood culture. Reviewed with Dr Allan. Bactrim should cover per her report. No additional treatment indicated at this time.
== END 2019-12-09 16:15 | disposition skilled nursing facility (03) | DRG 871 ==
LOC: ER 08:50 → ICU 14:50 → MEDSURG 12-07 07:21
PROVIDERS: Emergency Medicine; Admitting Provider Hospitalist; Emergency Provider Family Medicine; Family Provider Nurse Practitioner; PCP Nurse Practitioner; Visit Provider Family Medicine
DX: A41.9 Sepsis, unspecified organism (principal); I50.31 Acute diastolic (congestive) heart failure; G93.41 Metabolic encephalopathy; I69.359 Hemiplegia and hemiparesis following cerebral infarction affecting unspecified side; K57.92 Diverticulitis of intestine, part unspecified, without perforation or abscess without bleeding; R65.20 Severe sepsis without septic shock; H53.9 Unspecified visual disturbance; I25.10 Atherosclerotic heart disease of native coronary artery without angina pectoris; I11.0 Hypertensive heart disease with heart failure; I48.91 Unspecified atrial fibrillation; K21.9 Gastro-esophageal reflux disease without esophagitis; N40.0 Benign prostatic hyperplasia without lower urinary tract symptoms; F03.90 Unspecified dementia, unspecified severity, without behavioral disturbance, psychotic disturbance, mood disturbance, and anxiety; Z79.01 Long term (current) use of anticoagulants; Z85.828 Personal history of other malignant neoplasm of skin
CPT/HCPCS: 12345; 36415; 36600; 51702; 70450; 71045; 74177; 76705; 80048; 80053; 80500; 81001; 82140; 82803; 83605; 84443; 84484; 85025; 85610; 86592; 87040; 87070; 87075; 87077; 87086; 87184; 87186; 87205; 87804; 89050; 93005; 94664; 96372; 96374; 96375; 99284; J1650; J2060; J2405; J2543; J3370; J3490; J7030; J7050; Q9967

== ENCOUNTER 2019-12-15 13:12 | Outpatient (RCR) | payer OTHER, SELFPAY ==
[2019-12-15 13:45] LABS: Basophils # 0.1 10^3/uL (0.0-0.1); Basophils % 0.6 %; Eosinophils # 0.1 10^3/uL (0.0-0.8); Hematocrit 45.1 % (42.0-52.0); Hemoglobin 14.4 g/dL (11.7-16.6); Lymphocytes # 1.3 10^3/uL (0.8-4.8); Lymphocytes % 13.3 %; Mean Corpuscular HGB Conc 31.9 g/dL (30.0-36.0); Mean Corpuscular Hemoglobin 29.3 pg (28.0-34.0); Mean Corpuscular Volume 91.7 fL (80-94); Mean Platelet Volume 10.6 fL (7.4-10.4); Monocytes # 1.1 10^3/uL (0.2-0.9); Monocytes % 11.3 %; Neutrophils # 6.9 10^3/uL (1.8-7.7); Neutrophils % 73.3 %; Nucleated Red Blood Cells % 0 %; Platelet Count 292 10^3/cmm (130-400); Red Blood Count 4.92 10^6/uL (4.1-5.3); Red Cell Distribution Width 13.4 % (12.1-15.1); White Blood Count 9.5 10^3/uL (4.0-10.0)
[2019-12-15 14:15] LABS: Alanine Aminotransferase 16 U/L (0-41); Albumin Level 3.8 g/dL (3.5-5.2); Alkaline Phosphatase 76 IU/L (40-130); Anion Gap 16.2 (5-19); Aspartate Amino Transferase 20 U/L (0-40); Blood Urea Nitrogen 16 mg/dL (8-23); Carbon Dioxide 29 mmol/L (22-29); Chloride 100 mmol/L (98-107); Chol HDL Ratio 3.46 mg/dL (1.0-5.00); Cholesterol 142 mg/dL (0-200); Globulin 3.3 g/dL (1.3-4.6); Glucose 97 mg/dL (74-106); HDL Cholesterol 41 mg/dL (60-100); LDL Cholesterol Calculated 74 mg/dL (50-129); Potassium 4.2 mmol/L (3.5-5.1); Sodium 141 mmol/L (136-145); Total Bilirubin 0.3 mg/dL (0.15-1.2); Total Protein 7.1 g/dL (6.6-8.7); Triglycerides 137 mg/dL (0-150)
== END 2019-12-26 23:59 | disposition home or self-care (01) ==
LOC: LAB 13:12
PROVIDERS: Family Provider Nurse Practitioner; PCP Nurse Practitioner; Visit Provider Family Medicine
DX: A41.9 Sepsis, unspecified organism (principal); I48.91 Unspecified atrial fibrillation; I50.30 Unspecified diastolic (congestive) heart failure; E78.5 Hyperlipidemia, unspecified
CPT/HCPCS: 80053; 80061; 84443; 85025